=== PATIENT | female | born 1955 ===

== ENCOUNTER 2024-07-27 10:12 | Outpatient (REF) | payer MEDICARE, SELFPAY ==
--- NOTE | ~2024-07-27 | XR_ITS ---
EXAMINATION: XR SHOULDER, LEFT CLINICAL INFORMATION: M25.512 - Pain in left shoulder COMPARISON: None available. TECHNIQUE: 2 views of left shoulder including AP and scapular Y FINDINGS: There is mild arthrosis of the acromioclavicular joint. Glenoid humeral joint: Limited evaluation given the projections obtained. Suspect arthrosis of the glenohumeral joint with small marginal osteophytes noted inferiorly. Surrounding bone and soft tissues unremarkable. XR/XR shoulder LT min 2V IMPRESSION: Mild osteoarthritis of the acromioclavicular joint. Limited evaluation the glenohumeral joint. Suspect at least mild to moderate osteoarthritis. Consider full left shoulder series to further evaluate if felt clinically necessary. Electronically signed by: Sridhar Singleton MD 07/31/2024 01:56 PM [facility]
== END 2024-07-27 10:13 | disposition home or self-care (01) ==
LOC: HO.HOSX 10:12
PROVIDERS: Visit Provider Orthopaedic Surgery
DX: M25.512 Pain in left shoulder (principal); M25.511 Pain in right shoulder
CPT/HCPCS: 73030; 99212

== ENCOUNTER 2024-07-27 12:55 | Outpatient (AMB) | payer MEDICARE, SELFPAY ==
--- NOTE | 2024-07-27 13:16 | MHC.OFFVIS ---
Vital Signs 07/27/24 13:32 Height 5 ft 4 in Weight 149 lb BMI 25.6 Intake Visit Reasons: Bilateral shoulder pains Intake Note: Salena is a 69 year old female who presents with complaints of intermittent bilateral shoulder pains. The patient has not had a cortisone injection given into her left shoulder in the past. She has had multiple cortisone injections given into her right shoulder. The most recent injection was performed by another provider approximately 1 month ago. She has gotten fairly good relief from that injection. The patient continues with her home stretching program. The patient has been told that her right shoulder is ?[id number]?. today as a new patient with complaints of bilateral shoulder pain, right greater than left. Got a cortisone injection 06/23/24 at [facility] in her right shoulder. Allergies house dust Allergy (Severe, Verified 07/27/24 13:33) Sneezing pollen extracts Allergy (Severe, Verified 07/27/24 13:33) Sneezing erythromycin base Adverse Reaction (Severe, Verified 07/27/24 13:33) Diarrhea Medication List - Last Reconciled 07/27/24 by Troy Peterson MD amlodipine 5 mg PO DAILY citalopram 20 mg PO DAILY meloxicam 15 mg PO DAILY PFSH Social History (Updated 07/27/24 @ 13:35 by NITIN Chase) Alcohol intake: current Alcohol intake frequency: holidays/special occasions only Patient Tobacco Use Status: Never used Tobacco Current occupational status: retired Physical Exam Vital Signs: BMI result Body Mass Index 25.6 Const Other: Well-nourished well-developed very friendly female awake alert and oriented x3 in no acute distress Extrem Other: Bilateral upper extremity examination shows good capillary refill, no skin lesions noted, normal sensation light touch Bilateral shoulder examination shows forward flexion to 170 degrees, external rotation to 50 degrees, internal rotation to level L2, 4/5 strength with supraspinatus testing, no instability Results Reviewed Results Reviewed: X-rays of the patient's left shoulder taken today show moderate acromioclavicular joint narrowing, a type 2 acromion, mild to moderate glenohumeral joint degenerative changes, no acute bony abnormalities Assessment & Plan Assessment & Plan (1) Right shoulder pain: Code(s): M25.511 - Pain in right shoulder Category: Medical (2) Left shoulder pain: Code(s): M25.512 - Pain in left shoulder Category: Medical Plan Ms. Martinez presents with bilateral shoulder pains due to impingement syndrome and possible rotator cuff tearing. I had a lengthy discussion with the patient regarding the treatment options. At this point the patient's symptoms are tolerable to her. We will hold off on a left shoulder cortisone injection. She will continue with her [id number] exercises to prevent stiffness. She will contact me prior to her follow-up appointment in 2 months should any questions or concerns arise. Feel free to call me at any time should questions regarding her orthopedic management arise. I spent 22 minutes in reviewing the patient's records and imaging studies, seeing the patient and documenting in the medical record. Orders: Orders XR shoulder LT min 2V Today M25.512 - Pain in left shoulder XR shoulder RT min 2V Today M25.511 - Pain in right shoulder Coding Level of Care Code Est Pt Level 3 (30454) Complex EM visit Add On G2211 Diagnoses Right shoulder pain M25.511 Left shoulder pain M25.512
[2024-07-27 13:32] VITALS: BMI 25.6
== END 2024-07-27 14:01 | disposition home or self-care (01) ==
PROVIDERS: PCP Nurse Practitioner Primary Care; Visit Provider Orthopaedic Surgery
DX: M25.511 Pain in right shoulder (principal); M25.512 Pain in left shoulder
CPT/HCPCS: 99213; G2211

== ENCOUNTER 2024-10-27 10:16 | Outpatient (REF) | payer MEDICARE, SELFPAY ==
--- OUTSIDE RECORDS SUMMARY | 2024-10-28 11:29 | XMS_ITS | Encounter Summary ---
Author Organization [facility] Address [address] [place] [address] Care Team Providers Care Sweatband Drummer Name Role Phone Liv Berger NP Primary Care Provider [phone] Reason for Visit * Reason Onset Date Comments Medical Code 09/22/2024 Encounter Details Date Type Department Care Team (Late st Contact Info) Description 09/22/2024 Telephone Internal Medicine - [facility] [address] [place] [address] Liv Berger NP [address] [place] [address] Medical Code Social History Tobacco Use Types [...] for this bloodwork. Miguelangel advise. Tel #: [phone]. documented in this encounter Plan of Treatment Not on file documented as of this encounter Visit Diagnoses Not on filedocumented in this encounter Care Teams Sweatband Drummer Relationship Specialty Start Date End Date Liv Berger NP [address] [place] [address] PCP - General 09/16/22 documented as of this encounter
--- OUTSIDE RECORDS SUMMARY | 2024-10-28 11:29 | XMS_ITS | Clinical Summary ---
Author Organization [facility] Address [address] [place] [address] Care Team Providers Care Road Marker Name Role Phone Yoan Timmons MD Primary Care Provider [phone] Allergies Active Allergy Reactions Criticality Noted Date [...] this topic Medical Devices Implanted Type Area Composition Worker Device Identifier Shelf Expiration Date Model / Serial / Lot Shell Acetabular G7 Pps F Hemisphere Od54 Mm Limited Hole - [id number] - [id number] Implanted:Qty: 1 on 01/29/2018 by Wilbert River MD at [facility] Left: Hip [employer] 09/14/2027 [id number] / / [id number] Screw Trilogy 35mm 6.5mm Self Tap Tivanium Bone Cortex Hip - [id number] - [id number] Implanted:Qty: 1 on 01/29/2018 by Wilbert River MD at [facility] Left: Hip [employer] 09/30/2026 [id number] / / [id number] Screw Trilogy 35mm 6.5mm Self Tap Tivanium Bone Cortex Hip - [id number] - [id number] Implanted:Qty: 1 on 01/29/2018 by Wilbert River MD at [facility] Left: Hip [employer] 11/29/2027 [id number] / / [id number] Liner Acetabular G7 Arcomxl F Neutral Od36 Mm - [id number] - [id number] Implanted:Qty: 1 on 01/29/2018 by Wilbert River MD at [facility] Left: Hip [employer] 02/03/2022 [id number] / / [id number] Head +3mm 36mm Modular Tapered High Definition Cocr Femoral - [id number] - [id number] Implanted:Qty: 1 on 01/29/2018 by Wilbert River MD at [facility] Left: Hip [employer] 06/08/2027 [id number] / / [id number] Stem Taperloc 148mm 133d 14 High Offset Taper Type 1 - [id number] - [id number] Implanted:Qty: 1 on 01/29/2018 by Wilbert River MD at [facility] and [employer] [id number] / / Advance Directives For more information, please contact: [phone] Latest Code Status on File Code Status [...] way: discussion with patient . Care Teams Road Marker Relationship Specialty Start Date End Date Yoan Timmons MD [address] [address] PCP - General Internal Medicine 04/28/17
--- OUTSIDE RECORDS SUMMARY | 2024-10-28 11:29 | XMS_ITS | Clinical Summary ---
Author Organization [facility] Address [address] [place] [address] Phone Care Team Providers Care Solutions Executive Security Name Role Phone Liv Berger NP Primary Care Provider [phone] Encounters Date Type Department Care Team Description 09/22/2024 Telephone Internal Medicine - [facility] [address] [place] [address] Liv Berger NP Medical Code 09/06/2024 Telephone Internal Medicine - [facility] [address] [place] [address] Liv Berger NP Covid-19 08/30/2024 Telephone Internal Medicine - [facility] [address] [place] [address] Liv Berger NP Cough from Last 3 Months Surgical History Surgery Date Site/Laterality Comments KNEE SURGERY 2017 Left PROCEDURE:KNEE SURGERY;COMMENT:MENISCUS REPAIR EXPLORATORY LAPAROTOMY 1979 PROCEDURE:EXPLORATORY LAPAROTOMY CHOLECYSTECTOMY 2017 PROCEDURE:CHOLECYSTECTOMY OTHER SURGICAL HISTORY 2009 PROCEDURE:PALATE / UVULA BIOPSY / EXCISION;COMMENT:REMOVAL OF GROWTH OTHER SURGICAL HISTORY PROCEDURE:MI PELVIC EXAMINATION W/ANESTHESIA OTHER THAN LOCAL;COMMENT:? COLD KNIFE CONE JOINT REPLACEMENT PROCEDURE:JOINT REPLACEMENT TOTAL HIP ARTHROPLASTY 01/29/2018 Left PROCEDURE:TOTAL HIP ARTHROPLASTY;COMMENT:Procedure: REPLACEMENT TOTAL HIP; Surgeon: Wilbert River MD; [facility]: [facility] Service: Orthopedics; Laterality: Left; CHOLECYSTECTOMY 09/07/2017 PROCEDURE: HISTORICAL CHOLECYSTECTOMY OTHER SURGICAL HISTORY PROCEDURE: MI EXPLORATORY LAPAROTOMY CELIOTOMY W/WO BIOPSY SPX HIP [...] Procedure Name Priority Date/Time Associated Diagnosis Comments [facility] SCREENING DIGITAL Routine 07/08/2023 5:49 PM EST Encounter for screening mammogram for malignant neoplasm of breast [facility] DEXA AXIAL SKELETON Routine 07/05/2022 3:50 PM EDT Encounter for screening for osteoporosis from Last 3 Months or Most Recently Relevant to Health Maintenance Results * [facility] SCREENING DIGITAL (07/08/2023 5:49 PM EST) Anatomical Region Laterality Modality Mammography 07/08/2023 11:0 0 AM EST Narrative 07/08/2023 5:49 PM EST Diagnostic Imaging Department [address] [place] [address] Patient: ??LIZETT SMALLWOOD ?/Age/Sex: 1955 - 68 - F Unit#: ??[id number] ? Location/Status: ??SPDIMAM/REG CLI ? Mnemonic/Ordering Site: ??DIGSC/SPMAM Ordering Physician: ??JOSE VENCES APRN Temitope Screening Digital - 11/08/23 - 1130 Report Status:Signed EXAM: [facility] Screening Digital EXAM DATE AND TIME: 07/08/2023 11:30 AM HISTORY: ??Screening. COMPARISON: ??07/04/22, 06/14/21, 10/30/17 TECHNIQUE: Bilateral digital breast tomosynthesis was performed in the CC and MLO projections. Computer aided detection with MyCabbage 3D 3.1 was employed. TISSUE DENSITY: b. [...] Procedure Note Shannan Drew MD - 10/06/2023 Diagnostic Imaging Department [address] [place] [address] Patient: LIZETT SMALLWOOD./Age/Sex: 1955 - 68 - F Unit#: [id number] Location/Status: SPDIMAM/REG CLI Mnemonic/Ordering Site: [facility] Ordering Physician: JOSE VENCES APRN [facility] Screening Digital - 07/08/23 - 1130 Report Status:Signed EXAM: [facility] Screening Digital EXAM DATE AND TIME: 07/08/2023 11:30 AM HISTORY: Screening. COMPARISON: 07/04/22, 06/14/21, 10/30/17 TECHNIQUE: Bilateral digital breast tomosynthesis was performed in the CCand MLO projections. Computer aided detection with MyCabbage 3D 3.1was employed. TISSUE DENSITY: b. There [...] NP IMG BI PROCEDURES Final Result * [facility] DEXA AXIAL SKELETON (07/05/2022 3:50 PM EDT) Anatomical Region Laterality Modality Mammography 07/04/2022 2:08 PM EDT Narrative 07/05/2022 3:50 PM EDT Diagnostic Imaging Department [address] [place] [id number] Patient: ??LIZETT SMALLWOOD ?/Age/Sex: 1955 - 67 - F Unit#: ??[id number] ? Location/Status: ??SPDIMAM/REG CLI ? Mnemonic/Ordering Site: ??MAMDEXAAX/SPMAM Ordering Physician: ??DENNIS TIMMONS MD Temitope Dexa Axial Skeleton - 07/04/22 - 1501 History: Low estrogen state due to menopause. History of fracture. Prior left total hip arthroplasty. Findings: Bone densitometry is performed utilizing dual energy x-ray absorptiometry (DXA) in the E-[employer] unit. The lumbar spine and proximal femora [...] 19.6 percent ??Hip 4.0 percent. IMPRESSION: Osteopenia. [id number] Dictating Physician: ??SHANNAN DREW MD Electronically Signed by: ??SHANNAN DREW MD Dic Date/Time: ??07/05/22 1542 Sign date/Time: ??07/05/22 1550 Procedure Note Shannan Drew MD - 10/02/2023 Diagnostic Imaging Department [address] [place] [address] Patient: LIZETT SMALLWOOD /Age/Sex: 1955 - 67 - F Unit#: [id number] Location/Status: SPDIMAM/REG CLI Mnemonic/Ordering Site: MAMDEXAAX/SPMAM Ordering Physician: DENNIS TIMMONS MD [facility] Dexa Axial Skeleton - 07/04/22 - 1501 History: Low estrogen state due to menopause. History of fracture. Priorleft total hip arthroplasty. Findings: Bone densitometry is performed utilizing dual energy x-ray absorptiometry(DXA) in the [employer] unit. The lumbar spine and proximal femora [...] 19.6 percent Hip 4.0 percent. IMPRESSION: Osteopenia. [id number] Dictating Physician: SHANNAN DREW MD Electronically Signed by: SHANNAN DREW MD Dic Date/Time: 07/05/221547 Sign date/Time: 07/05/221549 us Dennis Timmons MD IMG BI PROCEDURES Final Re sult from Last 3 Months or Most Recently Relevant to Health Maintenance Insurance MEDICARE [facility] Care Teams Solutions Executive Security Relationship Specialty Start Date End Date Liv Berger NP [address] [place] [address] PCP - General 09/16/22
--- OUTSIDE RECORDS SUMMARY | 2024-10-28 11:29 | XMS_ITS | Encounter Summary ---
Author Organization [facility] Address [address] [place] [address] Care Team Providers Care Model Engine Mechanic Name Role Phone Liv Berger NP Primary Care Provider [phone] Reason for Visit * Reason Onset Date Comments Covid-19 09/06/2024 Encounter Details Date Type Department Care Team (Late st Contact Info) Description 09/06/2024 Telephone Internal Medicine - [facility] [address] [place] [address] Liv Berger NP [address] [place] [address] Covid-19 Social History Tobacco Use Types Packs/Day [...] the town She lives in or the [facility] they may offer kits for [...] on filedocumented in this encounter Care Teams Model Engine Mechanic Relationship Specialty Start Date End Date Liv Berger NP [address] [place] [address] PCP - General 09/16/22 documented as of this encounter
== END 2024-10-27 10:17 | disposition home or self-care (01) ==
LOC: HO.HOSX 10:16
PROVIDERS: Visit Provider Orthopaedic Surgery
DX: M25.511 Pain in right shoulder (principal); M25.811 Other specified joint disorders, right shoulder
CPT/HCPCS: 20610; 99212; J1010; J2003

== ENCOUNTER 2024-10-27 15:06 | Outpatient (AMB) | payer MEDICARE, SELFPAY ==
--- NOTE | 2024-10-27 15:07 | A.OFFVIS_ITS ---
Vital Signs 10/27/24 15:08 Height 5 ft 4 in Weight 149 lb BMI 25.6 Intake Visit Reasons: Right shoulder pain Intake Note: Salena is a 69 year old female who presents with complaints of bilateral shoulder pains, right greater than left. She describes her right shoulder pain as sharp in nature. She denies any weakness. She has tried Tylenol and anti- inflammatory medicines which gave her minimal relief. She has also done physical therapy exercises which aggravated her pain. She wishes to hold off on surgery if at all possible. Allergies house dust Allergy (Severe, Verified 10/27/24 15:08) Sneezing pollen extracts Allergy (Severe, Verified 10/27/24 15:08) Sneezing erythromycin base Adverse Reaction (Severe, Verified 10/27/24 15:08) Diarrhea Medication List - Last Reconciled 10/27/24 by Troy Peterson MD amlodipine 5 mg PO DAILY citalopram 20 mg PO DAILY meloxicam 15 mg PO DAILY PFS Social History (System 09/21/24 @ 12:35 by Taryn Mata) Alcohol intake: current Alcohol intake frequency: holidays/special occasions only Patient Tobacco Use Status: Never used Tobacco Current occupational status: retired Physical Exam Vital Signs: BMI result Body Mass Index 25.6 Const Other: Well-nourished well-developed very friendly female awake alert and oriented x3 in no acute distress Extrem Other: Bilateral upper extremity examination shows good capillary refill, no skin lesions noted, normal sensation light touch Right shoulder examination shows slightly decreased range of motion when compared to her left shoulder, 4+ out of 5 strength with supraspinatus testing, positive impingement signs, no instability Office Procedures AMB Joint Injection/Aspiration Joint Injection/Aspiration Primary Site: right shoulder Prep: site was prepped using aseptic technique Injected: 40 mg of and 1% plain lidocaine Procedure: The patient tolerated the procedure well Coding 65558 - Large joint Procedure code (CPT) selection complete Assessment & Plan Assessment & Plan (1) Impingement of right shoulder: Code(s): M25.811 - Other specified joint disorders, right shoulder Category: Medical (2) Right shoulder pain: Code(s): M25.511 - Pain in right shoulder Category: Medical Plan Ms. Martinez presents with right shoulder pain due to impingement syndrome. The risks and benefits of a right shoulder cortisone injection were discussed at length with the patient. The patient wished to proceed. She tolerated the injection well. She will continue with her home stretching program. She will contact me prior to her follow-up appointment in 3 months should any questions or concerns arise. Feel free to call me at any time should questions regarding her orthopedic management arise. I spent 20 minutes in reviewing the patient's records and imaging studies, seeing the patient and documenting in the medical record. Orders: Orders AMB Joint Injection/Aspiration 10/27/24 M25.811 - Other specified joint disorders, right shoulder Coding Level of Care Code Est Pt Level 3 (85174) Complex EM visit Add On G2211 Diagnoses Impingement of right shoulder M25.811 Right shoulder pain M25.511 CPT Codes Coding - 49357 Large joint: 52550 - Large joint ([id number])
[2024-10-27 15:08] VITALS: BMI 25.6
--- OUTSIDE RECORDS SUMMARY | 2024-10-27 18:25 | XMS_ITS | Clinical Summary ---
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 Name Role Phone Yoan Timmons MD Primary Care Provider [phone] Allergies Active Allergy Reactions Criticality Noted Date Comments Erythromycin Diarrhea 05/29/2017 Iodine 12/31/2017 Latex Rash Low 12/31/2017 Other 03/02/2018 Enviromental allergies Dust Cats Dogs horses Medications Medication Sig Dispensed Refills Start Date End Date Status hydrochlorothiazide (HYDRODIURIL) tablet 25 mg 0 05/29/2017 Active KLOR-CON/EF 25 MEQ disintegrating tablet TAKE 1 TABLET BY MOUTH EVERY DAY 5 05/14/2017 Active atorvastatin (LIPITOR) tablet 10 mg TAKE 1 TABLET BY MOUTH EVERY DAY 1 11/26/2017 Active vitamin C (ASCORBIC ACID) 500 MG tablet Take 500 mg by mouth daily. 0 Active Cyanocobalamin (VITAMIN B 12 PO) Take by mouth. 0 Act yahir Multiple Minerals-Vitamins (RAJEEV MAG ZINC +D3 PO) Take by mouth. 0 Active Lactobacillus (ACIDOPHILUS PO) Take by mouth. 0 Acti ve montelukast (SINGULAIR) 10 MG tablet Take 10 mg by mouth every night at bedtime. 0 Active escitalopram (LEXAPRO) 20 MG tablet Take 20 mg by mouth daily. 0 Active hydrochlorothiazide (HYDRODIURIL) tablet 25 mg Take 25 mg by mouth daily. 0 Active montelukast (SINGULAIR) 10 MG tablet Take 10 mg by mouth every night at bedtime. 0 Active Loratadine (CLARITIN) 10 MG CAPS Take 10 mg by mouth daily. 0 Active omeprazole (PRILOSEC) 20 MG capsule Take 20 mg by mouth daily. 0 Active Bioflavonoid Products (GENOVEVA C PO) Take 1 tablet by mouth daily. 0 Active ALPRAZolam (XANAX) 0.5 MG tablet Take 0.5 mg by mouth every night at bedtime as needed for sleep. 0 Active potassium bicarbonate (K-LYTE) 25 MEQ disintegrating tabletIndications:reji tigo Take 25 mEq by mouth daily. 0 Active aspirin EC 81 MG EC tablet Take 1 tablet (81 mg total) by mouth 2 (two) times a day after meals. 82 tablet 0 01/30/2018 Active meloxicam (MOBIC) 15 MG tablet Take 1 tablet (15 mg total) by mouth daily. 30 tablet 0 01/31/2018 Active oxyCODONE (ROXICODONE) 5 MG immediate release tablet Take 1-2 tablets (5-10 mg total) by mouth every 4 (four) hours as needed for pain. 50 tablet 0 01/30/2018 Active senna-docusate (PERICOLACE) 8.6-50 MG Take 1 tablet by mouth 2 (two) times a day. 60 tablet 0 01/30/2018 Active oxyCODONE (ROXICODONE) 5 MG immediate release tablet Take 1-2 tablets (5-10 mg total) by mouth every 4 (four) hours as needed for pain. 40 tablet 0 01/30/2018 Active amoxicillin (AMOXIL) 500 MG capsule TAKE 4 CAPS ONE HOUR PRIOR TO DENTAL PROCEDURE 20 capsule 1 03/22/2018 Active pravastatin (PRAVACHOL) tablet 20 mg Take 20 mg by mouth daily. 0 07/12/2018 Active amLODIPine (NORVASC) tablet 5 mg 0 10/01/2022 Active amoxicillin-clavulana te (AUGMENTIN) 875-125 MG per tablet Take 1 tablet by mouth 2 (two) times a day. 0 09/03/2022 Active fluconazole (DIFLUCAN) 150 MG tablet TAKE 1 TABLET BY MOUTH EVERY THREE DAYS NEEDED 0 09/04/2022 Active predniSONE (DELTASONE) 5 mg tablet Take 1 tablet (5 mg total) by mouth daily as needed. 0 08/12/2022 Active tiZANidine (ZANAFLEX) 2 MG tablet Take 1 tablet (2 mg total) by mouth 3 (three) times a day as needed. 21 tablet 0 10/01/2022 Active Active Problems Problem Noted Date Diagnosed Date Arthritis of right glenohumeral joint 10/02/2022 Rhomboid muscle strain 10/02/2022 History of total left hip replacement 02/18/2018 Osteoarthritis of left hip 12/31/2017 Left hip pain 12/31/2017 Lower limb length difference 12/31/2017 Subchondral cyst 12/31/2017 Status post arthroscopy of left knee 05/29/2017 Arthralgia of left knee 05/29/2017 Family History Medical History Relation Name Comments Heart disease Father Kidney disease Father Cancer Mother Diabetes Mother Hypertension Mother Thyroid disease Mother Coronary artery disease Sister Hypertension Sister Relation Name Status Comments Father Mother Other unk Sister Social History Tobacco Use Types Packs/Day Years Used Date Smoking Tobacco: Never Smokeless Tobacco: Never Tobacco Cessation:Counseling Given: Not Answered Alcohol Use Standard Drinks/Week Comments Not Currently 0 (1 standard drink = 0.6 oz pur e alcohol) VERY RARELY Sex and Gender Information Value Date Recorded Sex Assigned at Female 11/11/2019 1:38 PM EDT Gender Identity Not on file Sexual Orientation Not on file Job Start Date Occupation Industry Not on file Not on file Not on file Last Filed Vital Signs Vital Sign Reading Time Taken Comments Blood Pressure 140/90 11/18/2018 3:09 PM EDT Pulse 80 11/18/2018 3:09 PM EDT Temperature 36.6 ??C (97.8 ??F) 02/18/2018 1:27 PM ED T Respiratory Rate 16 01/30/2018 9:00 AM EDT Oxygen Saturation 98% 01/30/2018 9:00 AM EDT Inhaled Oxygen Concentration - - Weight 79.4 kg (175 lb) 10/01/2022 3:08 PM EST Height 162.6 cm (5' 4 ) 10/01/2022 3:08 PM EST Body Mass Index 30.04 10/01/2022 3:08 PM EST Plan of Treatment Health Maintenance Due Date Last Done Comments Hepatitis C Screening 1955 COVID-19 Vaccine (#1) 1953 Depression Screening 1965 BMI Counseling 1971 Preventative Health Evaluation 1971 DTap / Tdap / Td (1 - Tdap) 01/23/1972 Colon Cancer Screening (Colonoscopy) 1998 Breast Cancer Screening (Mammogram) 2003 Shingrix-Zoster Vaccine (1 of 2) 2003 Fall Risk Assessment 2018 Osteoporosis Screening (DEXA Scan) 2018 Pneumococcal Vaccine (1 of 1 - PCV) 2018 Influenza Vaccine (#1) 2024 RSV Adult > 60+ Yrs or Pregn ant (1 - 1-dose 75+ series) 01/23/2028 Hepatitis B Vaccines Aged Out No long er eligible based on patient's age to complete this topic RSV Ped < 20 months Aged Out No longe r eligible based on patient's age to complete this topic Medical Devices Implanted Type Area Manager Basketball Device Identifier Shelf Expiration Date Model / Serial / Lot Shell Acetabular G7 Pps F Hemisphere Od54 Mm Limited Hole - [id number] - [id number] Implanted:Qty: 1 on 01/29/2018 by Wilbert River MD at [facility] and [facility] [place] Left: Hip [employer] 09/14/2027 [id number] / / [id number] Screw Trilogy 35mm 6.5mm Self Tap Tivanium Bone Cortex Hip - [id number] - [id number] Implanted:Qty: 1 on 01/29/2018 by Wilbert River MD at [facility] and [facility] [place] Left: Hip [employer] 09/30/2026 [id number] / / [id number] Screw Trilogy 35mm 6.5mm Self Tap Tivanium Bone Cortex Hip - [id number] - [id number] Implanted:Qty: 1 on 01/29/2018 by Wilbert River MD at [facility] and [facility] [place] Left: Hip [employer] 11/29/2027 [id number] / / [id number] Liner Acetabular G7 Arcomxl F Neutral Od36 Mm - [id number] - [id number] Implanted:Qty: 1 on 01/29/2018 by Wilbert River MD at [facility] and [facility] [place] Left: Hip [employer] 02/03/2022 [id number] / / [id number] Head +3mm 36mm Modular Tapered High Definition Cocr Femoral - [id number] - [id number] Implanted:Qty: 1 on 01/29/2018 by Wilbert River MD at [facility] and [facility] [place] Left: Hip [employer] 06/08/2027 [id number] / / [id number] Stem Taperloc 148mm 133d 14 High Offset Taper Type 1 - [id number] - [id number] Implanted:Qty: 1 on 01/29/2018 by Wilbert River MD at [facility] and [employer] [id number] / / Advance Directives For more information, please contact: [phone] Latest Code Status on File Code Status Date Activated Date Inactivated Comments Full Code 01/29/2018 1:23 PM 01/31/2018 12:06 AM This c ode status was ascertained in the following way: discussion with patient . Code Status History Code Status Date Activated Date Inactivated Comments Full Code 01/29/2018 5:14 AM 01/29/2018 1:23 PM This co de status was ascertained in the following way: discussion with patient . Care Teams Tempering Machine Operator Relationship Specialty Start Date End Date Yoan Timmons MD [address] [address] PCP - General Internal Medicine 04/28/17
--- OUTSIDE RECORDS SUMMARY | 2024-10-27 18:25 | XMS_ITS | Clinical Summary ---
Author Organization [facility] Address [address] [place] [address] Phone Care Team Providers [employer] Name Role Phone Liv Berger NP Primary Care Provider [phone] Encounters Date Type Department Care Team Description 09/22/2024 Telephone Internal Medicine - [facility] [address] [place] [address] Liv Berger NP Medical Code 09/06/2024 Telephone Internal Medicine - [facility] [address] [place] [address] Liv Berger NP Covid-19 08/30/2024 Telephone Internal Medicine - [address] [place] [address] Liv Berger NP Cough from Last 3 Months Surgical History Surgery Date Site/Laterality Comments KNEE SURGERY 2017 Left PROCEDURE:KNEE SURGERY;COMMENT:MENISCUS REPAIR EXPLORATORY LAPAROTOMY 1979 PROCEDURE:EXPLORATORY LAPAROTOMY CHOLECYSTECTOMY 2017 PROCEDURE:CHOLECYSTECTOMY OTHER SURGICAL HISTORY 2009 PROCEDURE:PALATE / UVULA BIOPSY / EXCISION;COMMENT:REMOVAL OF GROWTH OTHER SURGICAL HISTORY PROCEDURE:LA PELVIC EXAMINATION W/ANESTHESIA OTHER THAN LOCAL;COMMENT:? COLD KNIFE CONE JOINT REPLACEMENT PROCEDURE:JOINT REPLACEMENT TOTAL HIP ARTHROPLASTY 01/29/2018 Left PROCEDURE:TOTAL HIP ARTHROPLASTY;COMMENT:Procedure: REPLACEMENT TOTAL HIP; Surgeon: Wilbert River MD; Location: [facility] Service: Orthopedics; Laterality: Left; CHOLECYSTECTOMY 09/07/2017 PROCEDURE: HISTORICAL CHOLECYSTECTOMY OTHER SURGICAL HISTORY PROCEDURE: LA EXPLORATORY LAPAROTOMY CELIOTOMY W/WO BIOPSY SPX HIP ARTHROPLASTY Left PROCEDURE: HISTORICAL HIP REPLACEMENT Medical History Medical History Date Comments Hypertension DX:Hypertension Arthritis DX:Arthritis Asthma DX:Asthma Irregular heart rhythm DX:Irregu lar heart rhythm Snoring DX:Snoring Depression DX:Depression Cataract DX:Cataract;COMM ENT:Beginning stages Digestive disorder DX:Digestive disorder;COMMENT:Intermittent Sleep apnea DX:Sleep apnea Snores DX:Snores;COMMEN T:SNORES LOUDLY. NO LIA PER PT Hyperlipidemia DX:Hyperlipidemi a;COMMENT:STOPPED LIPITOR DUE TO MUSCLE ACHES .SAYS SHE WILL RESTART AFTER HIP SURGERY Osteoarthritis DX:Osteoarthriti s Arrhythmia 1979 DX:Arrhythmia;CO MMENT:PACs Dizziness DX:Dizziness;COM MENT:OCC. PT STATES IT OCCURS WHEN SHE DOES NOT TAKE JAMIE KCLORCON GERD (gastroesophageal reflux disease) DX:GERD (gastroesophageal reflux disease);COMMENT:OMEPRAZOLE Deep vein thrombosis (CMS/HCC) D X:Deep vein thrombosis (HCC);COMMENT:SISTER Urinary urgency DX:Urinary urgen cy Peripheral neuropathy DX:Periphe ral neuropathy;COMMENT:OCC IN FEET High blood pressure DX:High bloo d pressure Female infertility DX:Female inf ertility Family History Medical History Relation Name Comments Coronary artery disease Father Heart disease Father Kidney disease Father Other cancer Father Cancer Mother Coronary artery disease Mother Diabetes Mother Hypertension Mother Thyroid disease Mother Coronary artery disease Sister 1 Hypertension Sister 1 Coronary artery disease Sister 2 Relation Name Status Comments Father Mother Other unk Sister 1 Sister 2 Social History Tobacco Use Types Packs/Day Years Used Date Smoking Tobacco: Never Smokeless Tobacco: Never Alcohol Use Standard Drinks/Week Comments Yes 0 (1 standard drink = 0.6 oz pur e alcohol) Comments Unknown Sex and Gender Information Value Date Recorded Sex Assigned at Not on file Legal Sex Female 8:25 PM EST Gender Identity Not on file Sexual Orientation Not on file Obstetrics History Last Filed Vital Signs Vital Sign Reading Time Taken Comments Blood Pressure 144/70 06/10/2024 2:40 PM EDT Pulse 75 06/07/2024 3:04 PM EDT Temperature - - Respiratory Rate - - Oxygen Saturation - - Inhaled Oxygen Concentration - - Weight 69.4 kg (153 lb) 06/10/2024 2:40 PM EDT Height 162.6 cm (5' 4 ) 06/10/2024 2:40 PM EDT Body Mass Index 26.26 06/10/2024 2:40 PM EDT Plan of Treatment Health Maintenance Due Date Last Done Comments DTaP,Tdap,and Td Vaccines (1 - Tdap) 01/23/1972 Zoster Vaccines (1 of 2) 2003 RSV Immunization Patients 60+ Years Old (1 - Risk 60-74 years 1-dose series) 2013 Colorectal Cancer Screening: Colonoscopy 08/02/2022 Depression Screening 08/02/2022 Falls Risk Assessment 08/02/2022 Hepatitis C Screening 08/02/2022 Medicare Annual Wellness Visit 08/02/2022 Social Influencers of Health Screening 08/02/2022 COVID-19 Vaccine ( season) 2024 05/31/2024, 08/27/2021, 02/11/2021, Additional history exists Hypertension/CHF/CAD Annual BMP Blood Test 06/07/2025 06/07/2024, 01/14/2024, 12/31/2017 Breast Cancer Screening 07/08/2025 07/08/20 23, 07/05/2022, 06/17/2021, Additional history exists Cholesterol Screening (Lipid Panel) 06/07/2029 06/07/2024 Osteoporosis Screening (Bone Density Screening) 07/05/2032 07/05/2022 Pneumococcal Vaccine: 50+ Years Completed 12/29/2022 Influenza Vaccine Completed 05/31/2024, 05/30/2024 HIB Vaccines Aged Out No longer eligi ble based on patient's age to complete this topic HPV Vaccines Aged Out No longer eligi ble based on patient's age to complete this topic Hepatitis A Vaccines Aged Out No long er eligible based on patient's age to complete this topic Hepatitis B Vaccines Aged Out No long er eligible based on patient's age to complete this topic IPV Vaccines Aged Out No longer eligi ble based on patient's age to complete this topic MMR Vaccines Aged Out No longer eligi ble based on patient's age to complete this topic Meningococcal ACWY Vaccine Aged Out N o longer eligible based on patient's age to complete this topic Meningococcal B Vacine Aged Out No lo nger eligible based on patient's age to complete this topic RSV Immunization Patients Under 20 months Aged Out No longer eligible based on patient's age to complete this topic Varicella Vaccines Aged Out No longer eligible based on patient's age to complete this topic Procedures Procedure Name Priority Date/Time Associated Diagnosis Comments [facility] SCREENING DIGITAL Routine 07/08/2023 5:49 PM EST Encounter for screening mammogram for malignant neoplasm of breast [facility] DEXA AXIAL SKELETON Routine 07/05/2022 3:50 PM EDT Encounter for screening for osteoporosis from Last 3 Months or Most Recently Relevant to Health Maintenance Results * [facility] SCREENING DIGITAL (07/08/2023 5:49 PM EST) Anatomical Region Laterality Modality Mammography 07/08/2023 11:0 0 AM EST Narrative 07/08/2023 5:49 PM EST [facility] Diagnostic Imaging Department [address] [place] [address] Patient: ??LIZETT SMALLWOOD ?/Age/Sex: 1955 - 68 - F Unit#: ??[id number] ? Location/Status: ??SPDIMAM/REG CLI ? Mnemonic/Ordering Site: ??DIGSC/SPMAM Ordering Physician: ??JOSE VENCES APRN Temitope Screening Digital - 11/08/23 - 1130 Report Status:Signed EXAM: [facility] Screening Digital EXAM DATE AND TIME: 07/08/2023 11:30 AM HISTORY: ??Screening. COMPARISON: ??07/04/22, 06/14/21, 10/30/17 TECHNIQUE: Bilateral digital breast tomosynthesis was performed in the CC and MLO projections. Computer aided detection with Traansmission 3D 3.1 was employed. TISSUE DENSITY: b. There are scattered areas of fibroglandular density. FINDINGS: No suspicious masses, grouped microcalcifications, or areas of architectural distortion are seen. Benign calcifications are again seen bilaterally, including benign rim calcifications. Vascular calcification is present. The skin is unremarkable. IMPRESSION: Stable mammographic appearance of the breasts. ??No evidence of malignancy is seen. A negative mammogram in the presence of a clinically suspicious palpable abnormality does not preclude the possibility of malignancy or alter the indications for biopsy. BI-RADS: ??Category 2: Benign RECOMMENDATION(S): 1: Routine screening mammogram BILATERAL in 1 year. Dictating Physician: ??SHANNAN DREW MD Electronically Signed by: ??SHANNAN DREW MD Dic Date/Time: ??07/08/231747 Sign date/Time: ??07/08/231748 Procedure Note Shannan Drew MD - 10/06/2023 [facility] Diagnostic Imaging Department [address] [place] [address] Patient: LIZETT SMALLWOOD./Age/Sex: 1955 - 68 - F Unit#: [id number] Location/Status: SPDIMAM/REG CLI Mnemonic/Ordering Site: [facility] Ordering Physician: JOSE VENCES APRN [facility] Screening Digital - 07/08/23 - 1130 Report Status:Signed EXAM: [facility] Screening Digital EXAM DATE AND TIME: 07/08/2023 11:30 AM HISTORY: Screening. COMPARISON: 07/04/22, 06/14/21, 10/30/17 TECHNIQUE: Bilateral digital breast tomosynthesis was performed in the CCand MLO projections. Computer aided detection with Traansmission 3D 3.1was employed. TISSUE DENSITY: b. There are scattered areas of fibroglandular density. FINDINGS: No suspicious masses, grouped microcalcifications, or areas ofarchitectural distortion are seen. Benign calcifications are again seen bilaterally,including benign rim calcifications. Vascular calcification is present. The skinis unremarkable. IMPRESSION: Stable mammographic appearance of the breasts. No evidence of malignancyis seen. A negative mammogram in the presence of a clinically suspicious palpable abnormality does not preclude the possibility of malignancy or alter the indications for biopsy. BI-RADS: Category 2: Benign RECOMMENDATION(S): 1: Routine screening mammogram BILATERAL in 1 year. Dictating Physician: SHANNAN DREW MD Electronically Signed by: SHANNAN DREW MD Dic Date/Time: 07/08/231747 Sign date/Time: 07/08/231748 Liv Berger NP IMG BI PROCEDURES Final Result * [facility] DEXA AXIAL SKELETON (07/05/2022 3:50 PM EDT) Anatomical Region Laterality Modality Mammography 07/04/2022 2:08 PM EDT Narrative 07/05/2022 3:50 PM EDT [facility] Diagnostic Imaging Department [address] [place] [address] [id number] Patient: ??LIZETT SMALLWOOD ?/Age/Sex: 1955 - 67 - F Unit#: ??[id number] ? Location/Status: ??SPDIMAM/REG CLI ? Mnemonic/Ordering Site: ??MAMDEXAAX/SPMAM Ordering Physician: ??DENNIS TIMMONS MD Temitope Dexa Axial Skeleton - 07/04/22 - 1501 History: Low estrogen state due to menopause. History of fracture. Prior left total hip arthroplasty. Findings: Bone densitometry is performed utilizing dual energy x-ray absorptiometry (DXA) in the [employer] unit. The lumbar spine and proximal femora are evaluated in the AP projection. The FRAX questionaire was completed. The results indicate low bone mass (osteopenia), with a right femoral neck T- score of -2.2. The Z score is -0.9, indicating the patient's bone mineral density is considered within normal limits relative to age. ??The detailed DEXA report will be mailed to the referring physician's office. DualFemur FRAX: 10-year Probability of Fracture: Major Osteoporotic 19.6 percent ??Hip 4.0 percent. IMPRESSION: Osteopenia. [id number] Dictating Physician: ??SHANNAN DREW MD Electronically Signed by: ??SHANNAN DREW MD Dic Date/Time: ??07/05/22 1546 Sign date/Time: ??07/05/22 1550 Procedure Note Shannan Drew MD - 10/02/2023 [facility] Diagnostic Imaging Department [address] [place] [address] Patient: LIZETT SMALLWOOD /Age/Sex: 1955 - 67 - F Unit#: [id number] Location/Status: SPDIMAM/REG CLI Mnemonic/Ordering Site: MAMDEXAAX/SPMAM Ordering Physician: DENNIS TIMMONS MD [facility] Dexa Axial Skeleton - 07/04/22 - 1501 History: Low estrogen state due to menopause. History of fracture. Priorleft total hip arthroplasty. Findings: Bone densitometry is performed utilizing dual energy x-ray absorptiometry(DXA) in the [employer] unit. The lumbar spine and proximal femora areevaluated in the AP projection. The FRAX questionaire was completed. The results indicate low bone mass (osteopenia), with a right femoral neckT- score of -2.2. The Z score is -0.9, indicating the patient's bonemineral density is considered within normal limits relative to age. The detailedDEXA report will be mailed to the referring physician's office. DualFemur FRAX: 10-year Probability of Fracture: Major Osteoporotic 19.6 percent Hip 4.0 percent. IMPRESSION: Osteopenia. [id number] Dictating Physician: SHANNAN DREW MD Electronically Signed by: SHANNAN DREW MD Dic Date/Time: 07/05/221547 Sign date/Time: 07/05/221549 us Dennis Timmons MD IMG BI PROCEDURES Final Re sult from Last 3 Months or Most Recently Relevant to Health Maintenance Insurance MEDICARE [facility] Care Teams [employer] Cook Head Relationship Specialty Start Date End Date Liv Berger NP [address] [place] [id number] PCP - General 09/16/22
--- OUTSIDE RECORDS SUMMARY | 2024-10-27 18:25 | XMS_ITS ---
Author Name [facility] Organization Unknown History of Medication Use Medication Directions Dispensed Refills Start Date End Date [facility] triamcinolone acetonide 0.1 % topical cream APPLY TOPICALLY TWO TIMES PER DAY FOR 15 DAYS active omeprazole 20 mg capsule,delayed release TAKE 1 CAPSULE BY MOUTH EVERY DAY 06/23/2024 active bromfenac 0.09 % eye drops INSTILL 1 DROP TO THE RIGHT EYE ONCE A DAY FOR 6 WEEKS DIRECTED 08/20/2023 completed lidocaine (PF) 10 mg/mL (1 %) injection solution active meloxicam 15 mg tablet Take 1 tablet every day by oral route as needed. 01/21/2024 active prednisone 20 mg tablet TAKE 3 TABS BY MOUTH FOR 3 DAYS THEN 2X3,1X3,0.5X4. BETTER IN THE AM W/FOOD active montelukast 10 mg tablet TAKE 1 TABLET BY MOUTH EVERY DAY active prednisone 5 mg tablet TAKE 1 TABLET BY MOUTH EVERY DAY active clotrimazole 10 mg keshawn TAKE 1 KESHAWN BY MOUTH 5 TIMES DAILY FOR 10 DAYS. active escitalopram 20 mg tablet TAKE 1 TABLET BY MOUTH EVERY DAY 08/20/2023 completed amlodipine 5 mg tablet TAKE 1 TABLET BY MOUTH EVERY DAY active triamcinolone acetonide 40 mg/mL suspension for injection Take 40 mg by injection route. 02/25/2024 active tizanidine 4 mg tablet TAKE 1 TABLET BY MOUTH THREE TIMES A DAY NEEDED 06/23/2024 active Klor-Con/EF 25 mEq effervescent tablet TAKE 1 TABLET BY MOUTH EVERY DAY 06/23/2024 active Problems Problem Status Onset Date Problem Type Date of Resoluti on Source Osteoarthritis of right glenohumeral joint active 2023-01-04 ProblemAct [facility] T Pain in right hip joint active 2023-05-07 ProblemAct [facility] History of total replacement of left hip joint active 2024-01-21 ProblemAct [facility] Abrasion of skin of right knee active 2023-11-25 ProblemAct [facility] Pain in pelvis active 2023-08-20 ProblemAct [facility]
--- OUTSIDE RECORDS SUMMARY | 2024-10-27 18:25 | XMS_ITS | Data Portability ---
Author Organization [place] [facility] Address [address] [place] [id number] Care Team Providers Care Rn Traveling Name Role Phone DENNIS MCCRARY Primary Care Provider Assessment Encounter Date Assessment Date Assessment LastModified by Organization Details LastModified Time 08/20/2023 08/20/2023 This is a pleasant 68-year-old female with right glenohumeral arthritis who gets good relief with cortisone injection for which she opted for at today's visit. After verbal consent was granted by patient. The procedure was carried out on the right shoulder. She tolerated this well aftercare instructions were discussed in detail. Follow-up visit 3 months or for repeat clinical exam. Patient was seen and evaluated by Lali England PA-C in indirect conjuction with Documenting Provider: Mateusz Crook MD . He/She agrees with history, physical examination, tests/diagnostic imaging, and treatment plan. Additional treatment plan discussed with the patient (only initiated if in boldface font) otherwise not applicable. Treatment may include the following; - Provider focused nonsteroidal anti-inflammator y regimen (discussed were the pros, cons, benefits and risks as well as any black box warnings) in patients over 60 years old they should be very cautious in taking these medications due to potential decreased kidney function and or elevated blood pressure. - Analgesic pain medication for pain suppression (discussed were the pros, cons, benefits and risks as well as any black box warnings) - The use of topical pain relieving medication were discussed - The use of ice to decrease inflammation and pain - The use of assistive ambulatory devices for ambulation and fall prevention - Formal specific guided physical therapy program I reviewed my findings at length with the patient today. ??We discussed the nature and etiology of this problem along with current treatment options. We discussed the expected course and outcomes and what to expect. We also discussed risks and benefits. ?? All of their questions were answered today, and there was exhibited understanding and comprehension of all that was discussed. Time Spent: 10 minutes were spent reviewing previous imaging and charting. ??10 minutes were spent obtaining patient history. ??5 minutes were spent on physical exam. ??5??minutes were spent explaining diagnosis and assessment. Today's documentation was made using voice recognition software. This note may contain grammatical errors secondary to the software. Not available 08/20/2023 14:57:27 11/25/2023 11/25/2023 This is a pleasant 68-year-old female with right glenohumeral arthritis who gets good relief with cortisone injection for which she opted for at today's visit. After verbal consent was granted by patient. The procedure was carried out on the right shoulder. She tolerated this well aftercare instructions were discussed in detail. Follow-up visit 3 months or for repeat clinical exam. Regarding her right knee she has a soft tissue abrasion wound care with dry sterile dressing recommended with triple antibiotic. Should she have lingering symptoms she should contact our office for reevaluation. No additional treatment at today's visit she agrees to this plan. We did review her radiographs with her in detail. Patient was seen and evaluated by Lali England PA-C in indirect conjuction with Documenting Provider: Mateusz Crook MD . He/She agrees with history, physical examination, tests/diagnostic imaging, and treatment plan. Additional treatment plan discussed with the patient (only initiated if in boldface font) otherwise not applicable. Treatment may include the following; - Provider focused nonsteroidal anti-inflammator y regimen (discussed were the pros, cons, benefits and risks as well as any black box warnings) in patients over 60 years old they should be very cautious in taking these medications due to potential decreased kidney function and or elevated blood pressure. - Analgesic pain medication for pain suppression (discussed were the pros, cons, benefits and risks as well as any black box warnings) - The use of topical pain relieving medication were discussed - The use of ice to decrease inflammation and pain - The use of assistive ambulatory devices for ambulation and fall prevention - Formal specific guided physical therapy program I reviewed my findings at length with the patient today. ??We discussed the nature and etiology of this problem along with current treatment options. We discussed the expected course and outcomes and what to expect. We also discussed risks and benefits. ?? All of their questions were answered today, and there was exhibited understanding and comprehension of all that was discussed. Time Spent: 10 minutes were spent reviewing previous imaging and charting. ??10 minutes were spent obtaining patient history. ??5 minutes were spent on physical exam. ??5??minutes were spent explaining diagnosis and assessment. Today's documentation was made using voice recognition software. This note may contain grammatical errors secondary to the software. Not available 11/25/2023 15:25:17 01/21/2024 01/21/2024 68-year-old female with left thigh pain. Notably she is status post left-sided total hip arthroplasty. There is no clinical or radiographic evidence of failure of her prosthetic. She also has some left knee pain. History examination and x-rays are consistent with mild osteoarthritis. She is also presenting with clinical signs of percent muscle strain and sprain. After discussion regarding treatment options she will be provided a prescription for meloxicam. Recheck in 2 months. This patient was seen and evaluated by Lali Lawrence MS, PA-C in indirect conjunction with documenting/supe rvising provider Gerson Loving MD. He agrees with history, physical examination, tests/diagnostic imaging, and treatment plan. This document was generated using voice recognition software. As a result, there may be unintended spelling, grammatical and/or textual errors. Not available 01/21/2024 16:38:26 02/25/2024 02/25/2024 The above findings were discussed in detail today with the patient. They have evidence of shoulder glenohumeral joint arthritis. Pathology and expected prognosis were discussed with the patient today. Treatment options include conservative treatment, anti-inflammator ies, activity modification, a cortisone injection, or consideration for shoulder surgery. They would not like surgery at this point would like a steroid injection. Risk and benefits of steroid injection were discussed with the patient today, they understand these risks and would like to proceed. They tolerated the procedure well. I let them know it can take 2 days to 2 weeks start working after 6 weeks to take its full effect. They can take anti-inflammator ies, ice, and rest or do activity medication in the meantime to help with the pain. I will see them back for follow-up in 3 months for repeat evaluation. All of their questions were answered, they are in agreement with the plan. ángela Not available 02/25/2024 16:26:43 06/23/2024 06/23/2024 The above findings were discussed in detail today with the patient. She has evidence of right shoulder glenohumeral joint arthritis, got good relief from a steroid injection however has recurrence of symptoms today. We discussed treatment options which include activity modification, anti-inflammator ies, another steroid injection, or consideration for surgery. She is not ready for surgery at this point. She would like to proceed with another injection today. Details of injection and as well as risks were discussed, including but not limited to infection, bleeding, nerve injury, no improvement, worsening of symptoms, flare reaction, skin depigmentation, and lipodystrophy. I let them know it can take 2 days to 2 weeks to start working and up to 6 weeks to take its full effect. They understand this and gave verbal consent. They tolerated the procedure well. I will send in a refill for her meloxicam which she will take as needed if the pain does return. I will have her follow-up with our shoulder specialist in 3 months for reevaluation. All of her questions were answered, she is in agreement with plan. ángela Not available 06/23/2024 15:18:35 Plan of Treatment Reminders Order Date Submit Date Provider Last Modified By Organization Details Last Modified Time Details Appointments None recorded. Lab None recorded. Referral None recorded. Procedures None recorded. Surgeries None recorded. Imaging XR, hip, unilateral, 2 or 3 view 2023 024 [email or web address] 2 [facility], [address], [place], [address], 4 16:44:11 XR, knee, 4 or more view 2023 024 [email or web address] 2 [facility], [address], [address], [place], [address], 4 16:44:11 XR, shoulder, 2 or more view 2023 [facility], [address], [address] [facility], [place], [address], 4 07:07:45 Medication Orders lidocaine (PF) 10 mg/mL (1 %) injection solution [address]/[facility]armacy #[id number], [address] [place], [address], 4 15:48:15 triamcinolo ne acetonide 40 mg/mL suspension for injection [address]/Pharmacy #0843, [address] [place], [address], 4 15:48:15 meloxicam 15 mg tablet 2023 024 [facility]/Pharmacy #0843, [address] [place], [address], 4 14:51:41 lidocaine (PF) 10 mg/mL (1 %) injection solution [address]/Pharmacy #0843, [address] [place], [address], 4 14:37:17 triamcinolo ne acetonide 40 mg/mL suspension for injection [address]/Pharmacy #0843, [address] [place], [address], 4 14:38:06 meloxicam 15 mg tablet 2023 024 [facility]/Pharmacy #0843, [address] [place], [address], 4 16:37:58 Kenalog 40 mg/mL suspension for injection [address]/Pharmacy #0843, [address] [place], [address], 14:38:06 lidocaine (PF) 100 mg/5 mL (2 %) injection syringe [address]23 [address] [address] [place] [address], [address], 14:37:19 Kenalog 40 mg/mL suspension for injection 2022 [address] [place], [address], 14:38:06 lidocaine (PF) 10 mg/mL (1 %) injection solution 2022 [address] [address] [place] [address], [address], 14:37:17 Patient TargetsNo targets recorded. Patient Instructions Encounter Date Encounter Id Patient Instructions Last Modified By Organization Details Last Modified Time 08/20/2023 [id number] You have been provided with a cortisone injection in order to reduce the pain and inflammation that you are experiencing. The injection consists of two medications. Cortisone (an anti-inflammatory that will take 48-72 hours to take effect) and Lidocaine (a numbing agent that will last 2-3 hours). Please note that not everyone will have a lasting response following the injection. PATIENT INSTRUCTIONS Once the Lidocaine wears off, you may have an increase in your pain. I recommend icing the affected area for 20 minutes 3-4 times per day. It is recommended that you refrain from any high level activities using the joint or limb that was injected for approximately 24-48 hours. Normal day-to-day activities are generally not a problem. POSSIBLE SIDE EFFECTS Individuals with dark complexions may experience some skin discoloration locally at the site of the injection. There is the possibility of an increase in discomfort within 48 hours following the injection. This is called a ? flare? . To help minimize the chances of this, please see the post-injection instructions above. There is a less than 1% chance of an infection. If you notice any signs of infection (redness, warmth, drainage, fever greater than 100 degrees) please call our office or contact us through the portal [facility]. Not available 08/20/2023 14:56:06 11/25/2023 [id number] You have been provided with a cortisone injection in order to reduce the pain and inflammation that you are experiencing. The injection consists of two medications. Cortisone (an anti-inflammatory that will take 48-72 hours to take effect) and Lidocaine (a numbing agent that will last 2-3 hours). Please note that not everyone will have a lasting response following the injection. PATIENT INSTRUCTIONS Once the Lidocaine wears off, you may have an increase in your pain. I recommend icing the affected area for 20 minutes 3-4 times per day. It is recommended that you refrain from any high level activities using the joint or limb that was injected for approximately 24-48 hours. Normal day-to-day activities are generally not a problem. POSSIBLE SIDE EFFECTS Individuals with dark complexions may experience some skin discoloration locally at the site of the injection. There is the possibility of an increase in discomfort within 48 hours following the injection. This is called a ? flare? . To help minimize the chances of this, please see the post-injection instructions above. There is a less than 1% chance of an infection. If you notice any signs of infection (redness, warmth, drainage, fever greater than 100 degrees) please call our office or contact us through the portal [facility]. Not available 11/25/2023 14:45:40 X-rays of the [facility] shoulder reveal severe tbrk-az-strr articulation glenohumeral arthritis, AC joint arthrosis without acute bony abnormality. Not available 11/25/2023 15:26:45 01/21/2024 [id number] {{2 3 4 5 6 7* 8 9}} view X-ray study obtained during today's office encounter show evidence of {{mild* moderate sev ere}} {{right left* bilate ral}} {{hip knee*}} osteoarthritis. There is joint space narrowing, subchondral sclerosis and marginal osteophytosis. Kellgren-Maximiliano grade {{0 1* 2 3 4}}. No evidence of acute fracture or osteolytic findings. {{3 4* 5 6 7}} view x-ray study of {{right left* bilate ral}} {{hip* knee}} obtained during today's office encounter does not show any signs of implant related issues including loosening, malposition, instability, periprosthetic fracture, periosteal reaction or infection. There is increased cortical thickening of the proximal medial femoral metaphysis suggestive of stress shielding. The remaining cortices are of normal thickness. Again, there is no evidence for fracture or loosening. Not available 01/21/2024 16:37:56 02/25/2024 [id number] You have been provided with a cortisone injection in order to reduce the pain and inflammation that you are experiencing. The injection consists of two medications. Cortisone (an anti-inflammatory that will take 48-72 hours to take effect) and Lidocaine (a numbing agent that will last 2-3 hours). Please note that not everyone will have a lasting response following the injection. PATIENT INSTRUCTIONS Once the Lidocaine wears off, you may have an increase in your pain. I recommend icing the affected area for 20 minutes 3-4 times per day. It is recommended that you refrain from any high level activities using the joint or limb that was injected for approximately 24-48 hours. Normal day-to-day activities are generally not a problem. POSSIBLE SIDE EFFECTS Individuals with dark complexions may experience some skin discoloration locally at the site of the injection. There is the possibility of an increase in discomfort within 48 hours following the injection. This is called a ? flare? . To help minimize the chances of this, please see the post-injection instructions above. There is a less than 1% chance of an infection. If you notice any signs of infection (redness, warmth, drainage, fever greater than 100 degrees) please call our office or contact us through the portal [facility]. Not available 02/25/2024 16:26:46 3 views of the r ight shoulder taken on 11/25/2023 were available for review, this demonstrates glenohumeral joint arthritis with joint space narrowing, osteophyte formation, and subchondral sclerosis. There is no humeral head proximal migration. There is mild demineralization of the bones. Not available 02/25/2024 16:26:14 06/23/2024 [id number] You have been provided with a cortisone injection in order to reduce the pain and inflammation that you are experiencing. The injection consists of two medications. Cortisone (an anti-inflammatory that will take 48-72 hours to take effect) and Lidocaine (a numbing agent that will last 2-3 hours). Please note that not everyone will have a lasting response following the injection. PATIENT INSTRUCTIONS Once the Lidocaine wears off, you may have an increase in your pain. I recommend icing the affected area for 20 minutes 3-4 times per day. It is recommended that you refrain from any high level activities using the joint or limb that was injected for approximately 24-48 hours. Normal day-to-day activities are generally not a problem. POSSIBLE SIDE EFFECTS Individuals with dark complexions may experience some skin discoloration locally at the site of the injection. There is the possibility of an increase in discomfort within 48 hours following the injection. This is called a ? flare? . To help minimize the chances of this, please see the post-injection instructions above. There is a less than 1% chance of an infection. If you notice any signs of infection (redness, warmth, drainage, fever greater than 100 degrees) please call our office or contact us through the portal [facility]. Not available 06/23/2024 15:17:39 Reason for Referral None Reported. Problems Name Problem SNOMED Code Status Onset Date Resolution Date Notes Provider Name and Address Organization Details Recorded Time Pain in right hip joint 6860957238411 02 Active 2022 LALI ENGLAND PA-C [address], [place], [address], [place] [facility] 3 13:34:03 Pain in pelvis 55667643 Active 2022 LALI ENGLAND PA-C [address], [place], [address], [place] [facility] 3 14:54:33 Abrasion of skin of right knee 0708482895980 9104 Active 2023 LALI ENGLAND PA-C [address], [place], [address], [place] [facility] 4 15:27:49 History of total replacement of left hip joint 0737869302368 105 Active 2023 LALI LAWRENCE PA-C [address], [place], [address], [place] [facility] 4 16:35:47 Osteoarthri tis of right glenohumera l joint 0906178733349 101 Active 2022 LALI ENGLAND PA-C [address] [facility] [address], [place], [address], [place] [facility] 3 20:42:43 Problem Notes None recorded. Procedures Surgical History Date Name Laterality Status Provider Name and Address Organization Details Recorded Time 06/23/20 24 LES Shoulder Interarticular Inj completed Johanne Umana MD [address] [facility],[address] [facility], [place], [address], [place] [facility] 06/23/2024 15:17:31 02/25/20 24 LES Shoulder Interarticular Inj completed Johanne Umana MD [address] [facility],[address] [facility], [place], [address], [place] [facility] 02/25/2024 16:25:26 11/25/19 24 Shoulder Joint/Bursa Asp & Inj completed LALI ENGLAND PA-C [address] [facility],[address] [place] [address], [phone], [place] [facility] 11/25/2023 14:45:58 08/20/20 23 Shoulder Joint/Bursa Asp & Inj completed LALI ENGLAND PA-C [address] [facility],[address] [facility], [place], [address], [place] [facility] 08/20/2023 14:54:31 05/07/20 23 Shoulder Joint/Bursa Asp & Inj completed LALI ENGLAND PA-C [address] [facility] [address] [place] [address], [address], [place] [facility] 05/07/2023 13:29:19 01/03/20 23 Shoulder Joint/Bursa Asp & Inj completed LALI ENGLAND PA-C [address] [facility] [address], [place], [address], [place] [facility] 01/04/2023 20:42:37 Imaging Results None recorded. Procedure Notes None recorded. Medical Equipment None Reported. Allergies No known drug allergies Medications Name Sig Start Date Stop Date Status Note LastModified by Organization Details LastModified Time clotrimazol e 10 mg siddhartha TAKE 1 SIDDHARTHA BY MOUTH 5 TIMES DAILY FOR 10 DAYS. PRN active Not Available Not Available No t Available doxycycline hyclate 100 mg capsule TAKE 1 CAPSULE BY MOUTH TWICE A DAY FOR 10 DAYS WAIT A FEW DAYS AND WORSENING BEGIN THE ANTIBIOTI C 06/23 completed Not Available Not Available Not Available tizanidine 2 mg tablet prn 06/23 completed Not Available Not Available Not Available tizanidine 4 mg tablet TAKE 1 TABLET BY MOUTH THREE TIMES A DAY NEEDED 06/23 completed Not Available Not Available Not Available fluconazole 150 mg tablet TAKE 1 TABLET BY MOUTH EVERY 72 HOURS NEEDED (YEAST INFECTION ). 06/23 completed Not Available Not Available Not Available citalopram 10 mg tablet TAKE 1 TABLET BY MOUTH EVERY DAY 08/20 completed Not Available Not Available Not Available meloxicam 15 mg tablet Take 1 tablet(s) every day by oral route as needed. 2023 active Not Available Not Available Not Avai lable prednisone 20 mg tablet TAKE 3 TABS BY MOUTH FOR 3 DAYS THEN 2X3,1X3,0 .5X4. BETTER IN THE AM W/FOOD active Not Available Not Available No t Available prednisone 5 mg tablet TAKE 1 TABLET BY MOUTH EVERY DAY active Not Available Not Available No t Available metronidazo le 250 mg tablet TAKE 1 TABLET BY MOUTH THREE TIMES A DAY FOR 7 DAYS 08/20 completed Not Available Not Available Not Available amlodipine 5 mg tablet TAKE 1 TABLET BY MOUTH EVERY DAY active Not Available Not Available No t Available triamcinolo ne acetonide 0.1 % topical cream APPLY TOPICALLY TWO TIMES PER DAY FOR 15 DAYS active Not Available Not Available No t Available alprazolam 0.5 mg tablet TAKE 1 TABLET BY MOUTH AT BEDTIME NEEDED PRN active Not Available Not Available No t Available citalopram 20 mg tablet TAKE 1 TABLET BY MOUTH EVERY DAY IN THE MORNING active Not Available Not Available No t Available triamcinolo ne acetonide 40 mg/mL suspension for injection Take 40 mg by injection route. 2023 active Not Available Not Available Not Avai lable omeprazole 20 mg capsule,del ayed release TAKE 1 CAPSULE BY MOUTH EVERY DAY 06/23 completed Not Available Not Available Not Available montelukast 10 mg tablet TAKE 1 TABLET BY MOUTH EVERY DAY active Not Available Not Available No t Available Klor-Con/EF 25 mEq effervescen t tablet prn 06/23 completed Not Available Not Available Not Available albuterol sulfate HFA 90 mcg/actuati on aerosol inhaler INHALE 2 PUFFS EACH 3 TIMES PER DAY (COUGH) PRN active Not Available Not Available No t Available amoxicillin 875 mg-potassiu m clavulanate 125 mg tablet TAKE 1 TABLET BY MOUTH TWICE A DAY FOR 10 DAYS 08/20 completed Not Available Not Available Not Available escitalopra m 20 mg tablet TAKE 1 TABLET BY MOUTH EVERY DAY 08/20 completed Not Available Not Available Not Available bromfenac 0.09 % eye drops INSTILL 1 DROP TO THE RIGHT EYE ONCE A DAY FOR 6 WEEKS DIRECTED 08/20 completed Not Available Not Available Not Available lidocaine (PF) 10 mg/mL (1 %) injection solution Take 2 mL by injection route. 2023 active Not Available Not Available Not Avai lable lidocaine (PF) 100 mg/5 mL (2 %) injection syringe Take 2 mL by injection route. 06/23 completed Not Available Not Available Not Available Flowflex COVID-19 Antigen Home Test kit USE ACCORDING TO MANUFACTU RER'S DIRECTION S 06/23 completed Not Available Not Available Not Available Vitals Date Recorded Body height Provider Name an d Address Organization Details Last Updated DateTime 08/20/[address] [facility] 08/20/2023 14:33:11 Date Recorded Body height Provider Name an d Address Organization Details Last Updated DateTime 02/25/[address]24 [address] [facility] 02/25/2024 15:58:29 Date Recorded Body height Provider Name an d Address Organization Details Last Updated DateTime 06/23/2024 [address] [place] [facility] 06/23/2024 14:38:09 Social History None recorded. Functional Status None recorded. Mental Status None recorded. Family History Relationship Description Onset Age of this Age Resolved Age Notes LastModified by Organization Details LastModified Time Mother Hypertensive disorder [email or web address] Not available 2022 13:51:22 Sister Hypertensive disorder [email or web address] Not available 2022 13:51:22 Medical History Condition Response Osteopenia Y Asthma Y Hypertension Y Gynecological HistoryNo gynecological history recorded. Obstetrics History GPAL:G 0 P 0 0 0 0 Past Encounters Encounter ID Performer Location Encounter Start Date Encounter Closed Date Diagnosis/Indication Diagnosis SNOMED-CT Code Diagnosis ICD10 Code Diagnosis Note [id number] MD THOMAS Spring 299 [facility] [address] [place] [address] 11/21/2022 13:43:19 11/21/2022 14:17:58 [id number] MD THOMAS Roblsearmani [address] [address] 01/02/2023 15:04:40 01/02/2023 16:04:10 Osteoarthritis of right glenohumeral joint [id number] M19.011 [id number] MD THOMAS Robles [address] [address] 05/07/2023 12:50:44 05/07/2023 13:26:51 Pain in pelvis 91574757 R10.2 Osteoarthr itis of right glenohumeral joint [id number] 321453 M19.011 Pain in ri ght hip joint 8587442448 52589 M25.551 [id number] MD THOMAS Elias 299 [facility] [address] [place] [address] 08/20/2023 14:24:46 08/20/2023 14:51:43 Osteoarthritis of right glenohumeral joint [id number] 740501 M19.011 [id number] MD THOMAS Elias [address] [address] 11/25/2023 14:43:16 11/25/2023 15:22:05 Pain of right shoulder joint 9293008450 5794908 M25.511 Additional diagnosis detail: Pain in joint of right shoulder Osteoarthr itis of right glenohumeral joint 2644303404 232132 M19.011 Abrasion o f skin of right knee 1139539039 0914824 S80.211A Additional diagnosis detail: Abrasion of right knee, initial encounter [id number] Gerson Loving [facility] [address] [address] 01/21/2024 15:47:12 01/21/2024 16:44:10 Osteoarthritis of left knee joint 6433287867 01859 M17.12 Additional diagnosis detail: Primary osteoarthr itis of left knee History of total replacement of left hip joint 8689224171 939176 Z96.642 Additional diagnosis detail: [place] [id number] [facility] [address] [address] 02/25/2024 15:47:43 02/25/2024 16:22:40 Osteoarthritis of right glenohumeral joint [id number] 451068 M19.011 [id number] MD PRAVIN Simmons[address] [address] 06/23/2024 14:27:55 06/23/2024 14:51:17 Osteoarthritis of right glenohumeral joint 8488959445 570291 M19.011 Health Concerns Section Related Observation LastModified by Organization Detai ls LastModified Time None Recorded Concern Status LastModified by Organization Details LastModified Time None Recorded Advance Directives Directive None Recorded Payers Encounter Date Sequence Insurance Name Policy Number Policy Ardon Covered Member ID Ardon Member ID Guarantor Name 08/20/2023 1 [place] [facility] [facility] Salena Martinez [id number] 4 Salena Martinez 08/20/2023 2 [place] [id number] Salena Martinez [id number] Salena Martinez 11/25/2023 1 [place] [employer] Salena Martinez [id number] 4 Salena Martinez 11/25/2023 2 [place] [id number] Salena Martinez [id number] Salena Martinez 01/21/2024 1 [place] [employer] Salena Martinez [id number] 4 Salena Martinez 01/21/2024 2 [place] [id number] Salena Martinez [id number] Salena Martinez 02/25/2024 1 [place] [facility] G[facility] Salena Martinez [id number] 4 Salena Martinez 02/25/2024 2 [place] [id number] Salena Martinez [id number] Salena Martinez 06/23/2024 1 [place] [facility] G[facility] Salena Martinez [id number] 4 Salena Martinez 06/23/2024 2 [place] [id number] Salena Martinez [id number] Salena Martinez Notes Date Note Type Note Provider Name and Address Organization Details Recorded Time 08/20/2023 text/html This is a 68-year-old female that was last seen on 05/07/2023 had cortisone injection of the right shoulder due to glenohumeral arthritis. She states this gave her 100% relief . She states she has returning symptoms of generalized right shoulder pain. LALI ENGLAND PA-C [address] [place] [address], [address], [place] - [facility] 08/20/2023 14:57:39 11/25/2023 text/html This is a 68-year-old female that was last seen on 08/20/2023 had cortisone injection of the right shoulder due to glenohumeral arthritis. She states this gave her 100% relief . She states she has returning symptoms of generalized right shoulder pain. She states she is gardening today and had a low velocity fall on her right knee for which she has an abrasion for which she would like me to look at. She is walking without difficulty. LALI ENGLAND PA-C 299 [facility],[place] [address], [place], [address], [facility] - [facility] 11/25/2023 15:28:29 01/21/2024 text/html 68-year-old fema todd presents with left thigh pain. She reports the onset of her symptoms a couple of weeks ago. There is no specific injury accident or trauma but she does believe that it is the result of a series of breaks in precautions. She goes on to describe for me that she has been able to cross her legs but has been making an effort to do it more forcefully. She experiences some discomfort along the anterior aspect of the thigh. She describes for me that is thinks sensation that it feels muscular in nature. Prior to this she was having some mild discomfort at the anterior aspect of the knee. The hip itself has remained high functioning and pain-free. LALI LAWRENCE PA-C 299 [facility],[place] [address], [place], [address], [facility] - [facility] 01/21/2024 16:38:54 02/25/2024 text/html This is a 69-year-old skuzo-lqok-lbqgjop t female who presents with right shoulder pain. She has been seeing Lali England for right glenohumeral joint arthritis and receiving steroid injections. Last injection was on 11/25/2023. She says these injections lasted for about 3 months and she gets good relief from them. She is able to do activities of daily living without difficulty. She has some mild pain of the left shoulder however this does not bother her enough that she would want to be addressed today. Johanne Umana MD 299 [facility],[address], [place], [address], [facility] - [facility] 02/25/2024 16:27:12 06/23/2024 text/html She presents for follow-up of her right shoulder glenohumeral joint arthritis, status post a steroid injection on 02/25/2024. She says this is lasted for about 4 months. She notes pain with certain activities. She has been doing activity modification. She takes meloxicam from time to time if she has increasing pain. Johanne Umana MD 299 [facility],[place] [address], [place], [address], [place] - [facility] 06/23/2024 15:18:57 OBGyn Episode No OBEpisode recorded.
--- OUTSIDE RECORDS SUMMARY | 2024-10-27 18:25 | XMS_ITS | Encounter Summary ---
Author Organization [facility] Address [address] [place] [address] Care Team Providers Care Water Technician Name Role Phone Liv Berger NP Primary Care Provider [phone] Reason for Visit * Reason Onset Date Comments Covid-19 09/06/2024 Encounter Details Date Type Department Care Team (Late st Contact Info) Description 09/06/2024 Telephone Internal Medicine - [facility] [address] [place] [address] Liv Berger NP [address] [place] [address] Covid-19 Social History Tobacco Use Types Packs/Day Years Used Date Smoking Tobacco: Never Smokeless Tobacco: Never Alcohol Use Standard Drinks/Week Comments Yes 0 (1 standard drink = 0.6 oz pur e alcohol) Comments Unknown Sex and Gender Information Value Date Recorded Sex Assigned at Not on file Legal Sex Female 8:25 PM EST Gender Identity Not on file Sexual Orientation Not on file documented as of this encounter Progress Notes * Anai Florence MA - 09/06/2024 4:48 PM EST Pt was told to request Covid test from pharmacy and also was told she can check with the town She lives in or the [facility] they may offer kits for free. Pt is concerned about cost and wants some on hand as she lives alone. * Liv Berger NP - 09/06/2024 4:22 PM EST I have never ordered COVID test to the pharmacy. Patient can request from her pharmacy but I cannotprescribe otherwise. * Judy Norman RN - 09/06/2024 1:57 PM EST Spoke with the patient explained that she could test positive for 90 days and does not need to keeptesting . CDC recommends quarantining for 5 days. She is requesting more Covid tests be ordered forher in the pharmacy. Please review and advise thank you * Ebony Santiago - 09/06/2024 1:41 PM EST Patient call requires triage: Symptoms patient is presenting: pt tested positive for Covid last week. She is down to one more test and doesn't know how many times she needs to test negative before being ok. She would like more test sent to her pharmacy How long has patient had these symptoms?: since last week PCP: Liv Berger NP Payor: MEDICARE / Plan: MEDICARE PART A & B / Product Type: Medicare / documented in this encounter Plan of Treatment Not on file documented as of this encounter Visit Diagnoses Not on filedocumented in this encounter Care Teams Water Technician Relationship Specialty Start Date End Date Liv Berger NP [address] [place] [address] PCP - General 09/16/22 documented as of this encounter
--- OUTSIDE RECORDS SUMMARY | 2024-10-27 18:25 | XMS_ITS | Encounter Summary ---
Author Organization [facility] Address [address] [place] [address] Care Team Providers Care Wilderness Guide Name Role Phone Liv Berger NP Primary Care Provider [phone] Reason for Visit * Reason Onset Date Comments Medical Code 09/22/2024 Encounter Details Date Type Department Care Team (Late st Contact Info) Description 09/22/2024 Telephone Internal Medicine - [facility] [address] [place] [address] Liv Berger NP [address] [place] [address] Medical Code Social History Tobacco Use Types Packs/Day Years [...] as of this encounter Progress Notes * Jayro Sullivan - 09/22/2024 12:21 PM EST Pt states she got a [employer] [facility] bill of $160, pt states she has already contacted Billing department and this department push this problem back to our office. Pt states Ab should change the code for the PE appt on 06/07/24 and medicare won't pay for this bloodwork. Miguelangel advise. Tel #: [phone]. documented in this encounter Plan of Treatment Not on file documented as of this encounter Visit Diagnoses Not on filedocumented in this encounter Care Teams Wilderness Guide Relationship Specialty Start Date End Date Liv Berger NP [address] [place] [address] PCP - General 09/16/22 documented as of this encounter
== END 2024-10-27 15:34 | disposition home or self-care (01) ==
PROVIDERS: PCP Nurse Practitioner Primary Care; Visit Provider Orthopaedic Surgery
DX: M25.811 Other specified joint disorders, right shoulder (principal); M25.511 Pain in right shoulder
CPT/HCPCS: 20610; 99213

== ENCOUNTER 2025-02-23 15:03 | Outpatient (AMB) | payer MEDICARE, SELFPAY ==
[2025-02-23 15:04] VITALS: BMI 25.6
--- NOTE | 2025-02-23 15:04 | A.OFFVIS_ITS ---
Vital Signs 02/23/25 15:04 Height 5 ft 4 in Weight 149 lb BMI 25.6 Intake Visit Reasons: OV-Right shoulder inj-Last 10/27/24 Intake Note: Salena is a 70 year old female who presents for follow up of her right shoulder pain. The patient describes her pain as sharp in nature. She has had cortisone injections in the past which gave her fairly good relief. She wishes to hold off on surgery if at all possible. She has done physical therapy exercises which aggravated her pain. She has also tried Tylenol and anti-inflammatory medicines which gave her mild relief. Allergies house dust Allergy (Severe, Verified 02/23/25 15:09) Sneezing pollen extracts Allergy (Severe, Verified 02/23/25 15:09) Sneezing erythromycin base Adverse Reaction (Severe, Verified 02/23/25 15:09) Diarrhea Medication List - Last Reconciled 02/24/25 by Troy Peterson MD amlodipine 5 mg PO DAILY citalopram 30 mg PO DAILY meloxicam 15 mg PO DAILY PFS Social History (System 09/21/24 @ 12:35 by Taryn Mata) Alcohol intake: current Alcohol intake frequency: holidays/special occasions only Patient Tobacco Use Status: Never used Tobacco Current occupational status: retired Physical Exam Vital Signs: BMI result Body Mass Index 25.6 Const Other: Well-nourished well-developed very friendly female awake alert and oriented x3 in no acute distress Extrem Other: Right shoulder examination shows decreased range of motion when compared to her left shoulder, 4+ out of 5 strength with supraspinatus testing, positive impingement signs, no instability Office Procedures AMB Joint Injection/Aspiration Joint Injection/Aspiration Primary Site: right shoulder Prep: site was prepped using aseptic technique Injected: 40 mg of, DepoMedrol and 1% plain lidocaine Procedure: The patient tolerated the procedure well Coding 45216 - Large joint Procedure code (CPT) selection complete Results Reviewed Results Reviewed: X-rays of the patient's right shoulder show severe acromioclavicular joint narrowing, a type 2 acromion, moderate to severe glenohumeral joint degenerative changes Assessment & Plan Assessment & Plan (1) Right shoulder pain: Code(s): M25.511 - Pain in right shoulder Category: Medical (2) Impingement of right shoulder: Code(s): M25.811 - Other specified joint disorders, right shoulder Category: Medical Plan Ms. Martinez presents with right shoulder pain due to impingement syndrome and glenohumeral joint arthritis. The risks and benefits of a right shoulder cortisone injection were discussed at length with the patient. The patient wi shed to proceed. She tolerated the injection well. She will continue with her home stretching program. She will contact me prior to her follow-up appointment in 3 months should any questions or concerns arise. Feel free to call me at any time should questions regarding her orthopedic management arise. I spent 22 minutes in reviewing the patient's records and imaging studies, seeing the patient and documenting in the medical record. Orders: Orders XR shoulder RT min 2V 02/23/25 M25.511 - Pain in right shoulder AMB Joint Injection/Aspiration 02/23/25 M25.811 - Other specified joint disorders, right shoulder Coding Level of Care Code Est Pt Level 3 (51078) Complex EM visit Add On G2211 Diagnoses Right shoulder pain M25.511 Impingement of right shoulder M25.811 CPT Codes Coding - 18093 Large joint: 24673 - Large joint ([id number])
--- OUTSIDE RECORDS SUMMARY | 2025-02-23 18:16 | XMS_ITS | Clinical Summary ---
Author Organization [facility] Address [address] [place] [address] Phone Care Team Providers Care Industrial Engineering Director Name Role Phone Liv Berger [employer] Primary Care Provider [phone] Medications amLODIPine (NORVASC) 5 mg tablet TAKE 1 TABLET BY MOUTH EVERY DAY 90 tablet 1 01/16/2025 Active Active Problems Problem Noted Date Diagnosed Date Splenic artery aneurysm (CMS/HCC V24) 01/18/2025 HTN (hypertension), benign 01/18/2025 Mild intermittent asthma without complication Dysthymia 01/18/2025 Anxiety 01/18/2025 Gastroesophageal reflux disease without esophagi tis 01/18/2025 Encounters Date Type Department Care Team Description 02/23/2025 Telephone Internal [facility] - [facility] [address] [facility] [place] [address] Liv Berger NP Labs Only 01/18/2025 Telephone Internal Medicine - [facility] [address] [place] [address] SCAN NEEDED from Last 3 Months Surgical History Surgery Date Site/Laterality Comments KNEE SURGERY 2017 Left PROCEDURE:KNEE SURGERY;COMMENT:MENISCUS REPAIR EXPLORATORY LAPAROTOMY 1979 PROCEDURE:EXPLORATORY LAPAROTOMY CHOLECYSTECTOMY 2017 PROCEDURE:CHOLECYSTECTOMY OTHER SURGICAL HISTORY 2009 PROCEDURE:PALATE / UVULA BIOPSY / EXCISION;COMMENT:REMOVAL OF GROWTH OTHER SURGICAL HISTORY PROCEDURE:ID PELVIC EXAMINATION W/ANESTHESIA OTHER THAN LOCAL;COMMENT:? COLD KNIFE CONE JOINT REPLACEMENT PROCEDURE:JOINT REPLACEMENT TOTAL HIP ARTHROPLASTY 01/29/2018 Left PROCEDURE:TOTAL HIP ARTHROPLASTY;COMMENT:Procedure: REPLACEMENT TOTAL HIP; Surgeon: Wilbert River MD; Location: [facility] Service: Orthopedics; Laterality: Left; CHOLECYSTECTOMY 09/07/2017 PROCEDURE: HISTORICAL CHOLECYSTECTOMY OTHER SURGICAL HISTORY PROCEDURE: ID EXPLORATORY LAPAROTOMY CELIOTOMY W/WO BIOPSY SPX HIP [...] DX:GERD (gastroesophageal reflux disease);COMMENT:OMEPRAZOLE Deep vein thrombosis (CMS/HC C V24, CMS/HCC V28) DX:Deep vein thrombosis (HCC);COMMENT:SISTER Urinary urgency DX:Urinary urgen [...] 06/10/2024 2:40 PM EDT Plan of Treatment Upcoming Encounters Date Type Department Care Team (Late st Contact Info) Description 02/24/2025 3:30 PM EDT Appointment [facility] CT Scan [address] [place] [address] 02/28/2025 2:30 PM EDT [facility] [address] [place] [address] Liv Berger, LIZA [address] [place] [address] 07/07/2025 10:20 AM EST Office Visit [facility] [address] [address] Rich Brock MD [address] [address] Health Maintenance Due Date Last Done Comments DTaP,Tdap,and Td Vaccines (1 - Tdap) 01/23/1972 Zoster Vaccines (1 of 2) 2003 RSV Immunization Adult Patients (1 - Risk 60-74 years 1-dose series) [...] age to complete this topic Meningococcal B Vaccine Aged Out No l onger eligible based on patient's age to complete this topic RSV Immunization Patients Under 20 months Aged Out No longer eligible based on patient's age to complete this topic Varicella Vaccines Aged Out No longer eligible based on patient's age to complete this topic Procedures Procedure Name Priority Date/Time Associated Diagnosis Comments [facility] SCREENING DIGITAL Routine 07/08/2023 5:49 PM EST Encounter for screening mammogram for malignant neoplasm of breast [facility] DEXA AXIAL SKELETON Routine 07/05/2022 3:50 PM EDT Encounter for screening for osteoporosis from Last 3 Months or Most Recently Relevant to Health Maintenance Results * [facility] SCREENING DIGITAL (07/08/2023 5:49 PM EST) Anatomical Region Laterality Modality Mammography 07/08/2023 11:0 0 AM EST Narrative 07/08/2023 5:49 PM EST [facility] Diagnostic Imaging Department [address] [place] [address] Patient: CLSALENAMAGDIEL Adler./Age/Sex: 1955 - 68 - F Unit#: [id number] Location/Status: SPDIMAM/REG CLI Mnemonic/Ordering Site: [facility] [place] Ordering Physician: JOSE VENCES APRN [facility] - 07/08/23 - 1130 Report Status:Signed EXAM: [facility] EXAM DATE AND TIME: 07/08/2023 11:30 AM HISTORY: Screening. COMPARISON: 07/04/22, 06/14/21, 10/30/17 TECHNIQUE: Bilateral digital breast tomosynthesis was performed in the CC and MLO projections. Computer aided detection with [employer] 3D 3.1 was employed. TISSUE DENSITY: b. There are scattered areas of fibroglandular density. FINDINGS: No suspicious masses, grouped microcalcifications, or areas of architectural distortion are seen. Benign calcifications are again seen bilaterally, including benign rim calcifications. Vascular calcification is present. The skin is unremarkable. IMPRESSION: Stable mammographic appearance of the breasts. No evidence of malignancy is seen. A negative mammogram in the presence of a clinically suspicious palpable abnormality does not preclude the possibility of malignancy or alter the indications for biopsy. BI-RADS: Category 2: Benign RECOMMENDATION(S): 1: Routine screening mammogram BILATERAL in 1 year. Dictating Physician: SHANNAN DREW MD Electronically Signed by: SHANNAN DREW MD Dic Date/Time: 07/08/231747 Sign date/Time: 07/08/231748 Procedure Note Shannan Drew MD - 10/06/2023 [facility] Diagnostic Imaging Department [address] [place] [address] Patient: CLSALENA /Age/Sex: 1955 - 68 - F Unit#: [id number] [facility] CLI Mnemonic/Ordering Site: [facility] [place] Ordering Physician: JOSE VENCES APRN [facility] - 07/08/23 - 1130 Report Status:Signed EXAM: [facility] EXAM DATE AND TIME: 07/08/2023 11:30 AM HISTORY: Screening. COMPARISON: 07/04/22, 06/14/21, 10/30/17 TECHNIQUE: Bilateral digital breast tomosynthesis was performed in the CCand MLO projections. Computer aided detection with [employer] 3D 3.1was employed. TISSUE DENSITY: b. There [...] 07/08/231747 Sign date/Time: 07/08/231748 Liv Berger NP IM BI PROCEDURES Final Result * [facility] DEXA AXIAL SKELETON (07/05/2022 3:50 PM EDT) Anatomical Region Laterality Modality Mammography 07/04/2022 2:08 PM EDT Narrative 07/05/2022 3:50 PM EDT [facility] Diagnostic Imaging Department [address] [place], [place] [id number] Patient: SALENA SMALLWOOD /Age/Sex: 1955 - 67 - F Unit#: [id number] [facility] [place] Ordering Physician: DENNIS TIMMONS MD [facility] Axial Skeleton - 07/04/22 History: Low estrogen state due to menopause. History of fracture. Prior left total hip arthroplasty. Findings: Bone densitometry is performed utilizing dual energy x-ray absorptiometry (DXA) in the [employer] unit. The lumbar spine and proximal femora are evaluated in the AP projection. The FRAX questionaire was completed. The results indicate low bone mass (osteopenia), with a right femoral neck T- score of -2.2. The Z score is -0.9, indicating the patient's bone mineral density is considered within normal limits relative to age. The detailed DEXA report will be mailed to the referring physician's office. [employer] FRAX: 10-year Probability of Fracture: Major Osteoporotic 19.6 percent Hip 4.0 percent. IMPRESSION: Osteopenia. [id number] Dictating Physician: SHANNAN DREW MD Electronically Signed by: SHANNAN DREW MD Dic Date/Time: 07/05/22 1548 Sign date/Time: 07/05/22 155 Procedure Note Shannan Drew MD - 10/02/2023 [facility] Diagnostic Imaging Department [address] [place] [address] Patient: CLETELVINASALENA /Age/Sex: 1955 - 67 - F Unit#: [id number] [facility] [place] Ordering Physician: DENNIS TIMMONS MD [facility] Axial Skeleton - 07/04/22 - 150 History: Low estrogen state due to menopause. History of fracture. Priorleft total hip arthroplasty. Findings: Bone densitometry is performed utilizing dual energy x-ray absorptiometry(DXA) in the [employer] unit. The lumbar spine and proximal femora [...] 19.6 percent Hip 4.0 percent. IMPRESSION: Osteopenia. [id number] Dictating Physician: SHANNAN DREW MD Electronically Signed by: SHANNAN DREW MD Dic Date/Time: 07/05/22 1548 Sign date/Time: 07/05/22 1550 Dennis Timmons MD IMG BI PROCEDURES Final Re sult from Last 3 Months or Most Recently Relevant to Health Maintenance Insurance MEDICARE BLUE CROSS - [place] MEDICARE ADVANTAGE Care Teams Industrial Engineering Director Relationship Specialty Start Date End Date Liv Berger NP [address] [place] [address] [facility] - General 09/16/22
== END 2025-02-23 15:49 | disposition home or self-care (01) ==
LOC: HO.HOS 15:03
PROVIDERS: PCP Nurse Practitioner Primary Care; Visit Provider Orthopaedic Surgery
DX: M25.511 Pain in right shoulder (principal); M25.811 Other specified joint disorders, right shoulder
CPT/HCPCS: 20610; 99213

== ENCOUNTER 2025-02-23 15:03 | Outpatient (REF) | payer MEDICARE, SELFPAY ==
--- NOTE | ~2025-02-23 | XR_ITS ---
EXAMINATION: XR SHOULDER, RIGHT CLINICAL INFORMATION: M25.511 - Pain in right shoulder COMPARISON: None available. TECHNIQUE: AP neutral and scapular Y view of the right shoulder. FINDINGS: Moderate medial osteophyte is present involving the humeral head. There is a calcified body ejecting in the region of the axillary pouch measuring 6 x 11 mm. There is no dislocation. AC joint is intact and not degenerated. XR/XR shoulder RT min 2V IMPRESSION: Moderate degenerative change of the right glenoid humeral joint with possible 6 x 11 mm calcified intra-articular body. Electronically signed by: Saurav Powell MD 02/23/2025 04:52 PM EDT
== END 2025-02-23 15:04 | disposition home or self-care (01) ==
LOC: HO.HOSX 15:03
PROVIDERS: PCP Nurse Practitioner Primary Care; Visit Provider Orthopaedic Surgery
DX: M25.511 Pain in right shoulder (principal); M25.811 Other specified joint disorders, right shoulder
CPT/HCPCS: 20610; 73030; 99212; J1010; J2003

== ENCOUNTER → 2025-02-23 15:16 | Outpatient (BNV) | payer MEDICARE, SELFPAY | PROVIDERS: PCP Nurse Practitioner Primary Care; Visit Provider Radiology Diagnostic Radiology | DX: M19.011 Primary osteoarthritis, right shoulder (principal) | CPT/HCPCS: 73030 ==

== ENCOUNTER 2025-05-25 15:04 | Outpatient (AMB) | payer MEDICARE, SELFPAY ==
--- NOTE | 2025-05-25 15:12 | MHC.OFFVIS ---
Intake Visit Reasons: OV-Right shoulder inj-Last 02/23/25 Intake Note: Salena 70 yr old female who presents with complaints of right shoulder pain. She describes her pain as achy in nature. She has had cortisone injections in the past which gave her fairly good relief. She wishes to hold off on total shoulder replacement surgery if at all possible. She has taken meloxicam which gives her mild relief. Allergies house dust Allergy (Severe, Verified 05/25/25 15:14) Sneezing pollen extracts Allergy (Severe, Verified 05/25/25 15:14) Sneezing erythromycin base Adverse Reaction (Severe, Verified 05/25/25 15:14) Diarrhea Medication List - Last Reconciled 05/25/25 by Troy Peterson MD amlodipine 5 mg PO DAILY citalopram 30 mg PO DAILY meloxicam 15 mg PO DAILY PFSH Social History Alcohol intake: current Alcohol intake frequency: holidays/special occasions only Patient Tobacco Use Status: Never used Tobacco Current occupational status: retired Physical Exam Const Other: Well-nourished well-developed very friendly female awake alert and oriented x3 in no acute distress Extrem Other: Right shoulder examination shows decreased range of motion when compared to her left shoulder, positive impingement signs, no instability Office Procedures AMB Joint Injection/Aspiration Joint Injection/Aspiration Primary Site: right shoulder Prep: site was prepped using aseptic technique Injected: 40 mg of, DepoMedrol and 1% plain lidocaine Procedure: The patient tolerated the procedure well Coding 13752 - Large joint Procedure code (CPT) selection complete Assessment & Plan Assessment & Plan (1) Impingement of right shoulder: Code(s): M25.811 - Other specified joint disorders, right shoulder Category: Medical Plan Ms. Martinez presents with right shoulder pain due to impingement syndrome and glenohumeral joint arthritis. The risks and benefits of a right shoulder cortisone injection were discussed at length with the patient. The patient wished to proceed. She tolerated the injection well. She will continue with her home stretching program. She will contact me prior to her follow-up appointment in 3 months should any questions or concerns arise. Feel free to call me at any time should questions regarding her orthopedic management arise. I spent 20 minutes in reviewing the patient's records and imaging studies, seeing the patient and documenting in the medical record. Orders: Orders AMB Joint Injection/Aspiration Today M25.811 - Other specified joint disorders, right shoulder Coding Level of Care Code Est Pt Level 3 (72843) Complex EM visit Add On G2211 Diagnoses Impingement of right shoulder M25.811 CPT Codes Coding - 56932 Large joint: 18228 - Large joint ([id number])
--- OUTSIDE RECORDS SUMMARY | 2025-05-25 19:22 | XMS_ITS | Clinical Summary ---
Author Organization [facility] Address [address] [place] [address] Care Team Providers Care Polyethylene Combiner Name Role Phone Yoan Timmons MD Primary Care Provider [phone] Allergies Active Allergy Reactions Criticality Noted Date [...] 80 11/18/2018 3:09 PM EDT Temperature 36.6 C (97.8 F) 02/18/2018 1:27 PM EDT Respiratory Rate 16 01/30/2018 9:00 AM EDT [...] 1 - PCV) 2018 Influenza Vaccine (#1) 2025 RSV Adult > 60+ Yrs or Pregn ant (1 - 1-dose 75+ series) 01/23/2028 Hepatitis B Vaccines Aged Out No long er eligible based on patient's age to complete this topic RSV Ped < 20 months Aged Out No longe r eligible based on patient's age to complete this topic Medical Devices Implanted Type Area Agricultural Economist Device Identifier Shelf Expiration Date Model / Serial / Lot Shell Acetabular G7 Pps F Hemisphere Od54 Mm Limited Hole - [id number] - [id number] Implanted:Qty: 1 on 01/29/2018 by Wilbert River MD at [facility] Left: Hip [employer] 09/14/2027 [id number] / / [id number] Screw Trilogy 35mm 6.5mm Self Tap Tivanium Bone Cortex Hip - [id number] - [id number] Implanted:Qty: 1 on 01/29/2018 by Wilbert River MD at [facility] and [facility] Left: Hip [employer] 09/30/2026 [id number] / / [id number] Screw Trilogy 35mm 6.5mm Self Tap Tivanium Bone Cortex Hip - [id number] - [id number] Implanted:Qty: 1 on 01/29/2018 by Wilbert River MD at [facility] and [facility] Left: Hip [employer] 11/29/2027 [id number] / / [id number] Liner Acetabular G7 Arcomxl F Neutral Od36 Mm - [id number] - [id number] Implanted:Qty: 1 on 01/29/2018 by Wilbert River MD at [facility] Left: Hip [employer] 02/03/2022 [id number] / / [id number] Head +3mm 36mm Modular Tapered High Definition Cocr Femoral - [id number] - [id number] Implanted:Qty: 1 on 01/29/2018 by Wilbert River MD at [facility] Left: Hip [employer] 06/08/2027 [id number] / / [id number] Stem Taperloc 148mm 133d 14 High Offset Taper Type 1 - [id number] - [id number] Implanted:Qty: 1 on 01/29/2018 by Wilbert River MD at [facility] and [employer] [id number] / / Advance Directives For more information, please contact: [phone] Latest Code Status on File Code Status [...] way: discussion with patient . Care Teams Polyethylene Combiner Relationship Specialty Start Date End Date Yoan Timmons MD [address] [facility] [address] [place] [address] PCP - General Internal Medicine 04/28/17
--- OUTSIDE RECORDS SUMMARY | 2025-05-25 19:23 | XMS_ITS | Patient Health Record ---
Author Organization [facility] Address [address] [facility] [place] [address] Care Team Providers Care Earth Science Professor Name Role Phone Shanelle SARABIA, Yoan Primary Care Provider Katy Amarjit Alberto Unavailable [phone] Allergies Allergen (clinical drug ingredient) Drug/Non Drug Allergy documented on EMR Reaction Allergy Type Onset Date Status meperidine Demerol nausea Drug Allergy Active adhesive tape irritation of skin Drug Allergy Active Latex Unknown Drug Allergy Active Reason For Referral No Information Medications Medication SIG (Take, Route, Frequency, Duration) Notes Start Date End Date Status ProAir HFA 108 (90 Base) MCG/ACT TAKE 2 PUFFS BY MOUTH 4 TIMES A DAY NEEDED Inhalation; Duration: 25 PRN Active predniSONE 5 MG TAKE 1 TABLET BY MOUTH TWICE A DAY Oral; Duration: 13 PRN Active Klor-Con/EF 25 MEQ TAKE 1 TABLET BY MOUTH EVERY DAY Oral; Duration: 30 Active Lexapro 20 MG 0.5 tablet Orally Once a day 11/09/2017 Active hydroCHLOROthiazide 25 MG TAKE 1 TABLET BY MOUTH EVERY DAY Oral; Duration: 90 Active ALPRAZolam 0.5 MG (Schedule IV Drug) TAKE 1 TABLET BY MOUTH 3 TIMES A DAY Oral; Duration: 5 Not-Taking Azithromycin 250 MG TAKE 2 TABLETS BY MOUTH TODAY, THEN TAKE 1 TABLET DAILY FOR 4 DAYS Oral; Duration: 5 Not-Taking Montelukast Sodium 10 MG 1 tablet in the evening Orally Once a day 11/09/2017 Active Omeprazole 20 MG 1 tablet Orally Once a day 11/09/2017 Active Social History Tobacco Use: Social History Observation Description Date Details (start date - stop date) Never Smoker NA - NA Tobacco Use/Smoking Question Answer Notes Are you a: nonsmoker Additional Findings: Tobacco Non-User Current no n-smoker Alcohol Screen Question Answer Notes Did you have a drink containing alcohol in the p ast year? Yes Points 0 Interpretation Negative Tobacco use other than smoking: Question Answer Notes Are you an other tobacco user? No Plan Of Treatment No Information Insurance Providers Payer Name Payer Address Payer Phone Subscriber Number Group Number Insured Name Patient Relationship to Insured Coverage Start Date Coverage End Date [facility] [address] [facility] [place] [address] [id number] Salena Martinez Self - patient is the insured Medical (General) History Medical History History ICD Code Anxiety disorder asthma Back,Hip,and Knee pain Broken bones Cholesterol Depression Gall bladder problems Hypertension Reflux ( GERD) Scarlet fever chronic sinusitis Warts Measles Mumps Chicken pox Surgical History Surgery Date(Month/Year) laparotomy 1980 Meniscus repair 2017 gall bladder 2018 removal of growth from uvula 2010 Hospitalization History Reason Date(Month/Year) Gall bladder surgery 2018 MRI Right foot/heel 01/06/17
--- OUTSIDE RECORDS SUMMARY | 2025-05-25 19:23 | XMS_ITS | Data Portability ---
Author Organization [place] [facility] [place] Address [address] [place] [address] Care Team Providers Care Physical Therapy Nurse Name Role Phone DENNIS MCCRARY Primary Care [...] findings at length with the patient today. We discussed the nature and etiology of this problem along with current treatment options. We discussed the expected course and outcomes and what to expect. We also discussed risks and benefits. All of their questions were answered today, and there was exhibited understanding and comprehension of all that was discussed. Time Spent: 10 minutes were spent reviewing previous imaging and charting. 10 minutes were spent obtaining patient history. 5 minutes were spent on physical exam. 5minutes were spent explaining diagnosis and assessment. Today's [...] findings at length with the patient today. We discussed the nature and etiology of this problem along with current treatment options. We discussed the expected course and outcomes and what to expect. We also discussed risks and benefits. All of their questions were answered today, and there was exhibited understanding and comprehension of all that was discussed. Time Spent: 10 minutes were spent reviewing previous imaging and charting. 10 minutes were spent obtaining patient history. 5 minutes were spent on physical exam. 5minutes were spent explaining diagnosis and assessment. Today's [...] view 2023 024 [email or web address] 2 [facility], [address], [place], [address], 4 16:44:11 XR, knee, 4 or more view 2023 024 [email or web address] 2 [facility], [address], [place], [address], 4 16:44:11 XR, shoulder, 2 or more view 2023 024 [facility], [address], [address] [facility] [place], [place], [address], 07:07:45 Medication Orders lidocaine (PF) 10 mg/mL (1 %) injection solution [address]/[facility]armacy #0843, [address] [place], [address], 4 15:48:15 triamcinolo ne acetonide 40 mg/mL suspension for injection [address]/Pharmacy #0843, [address] [place], [address], 4 15:48:15 meloxicam 15 mg tablet 2023 [facility]/Pharmacy #0843, [address] [place], [address], 14:51:41 lidocaine (PF) 10 mg/mL (1 %) injection solution [address]/Pharmacy #0843, [address] [place], [address], 4 14:37:17 triamcinolo ne acetonide 40 mg/mL suspension for injection [address]/Pharmacy #0843, [address] [place], [address], 4 14:38:06 meloxicam 15 mg tablet 2023 024 [facility]/Pharmacy #0843, [address] [place], [address], 4 16:37:58 Kenalog 40 mg/mL suspension for injection [address]/Pharmacy #0843, [address] [place], [address], 14:38:06 lidocaine (PF) 100 mg/5 mL (2 %) injection syringe 2023 [address] [place] [address], [address], 14:37:19 Kenalog 40 mg/mL suspension for injection 2022 023 [address] [place] [address], [address], 14:38:06 lidocaine (PF) 10 mg/mL (1 %) injection solution 2022 023 [address], [address] [place] [address], [address], 14:37:17 Patient TargetsNo targets recorded. Patient Instructions Encounter Date Encounter Id Patient Instructions Last Modified By Organization Details Last Modified Time 08/20/2023 [id number] You have been provided with a cortisone [...] following the injection. This is called a f lare . To help minimize the chances of this, please see the post-injection instructions above. There is a less than 1% chance of an infection. If you notice any signs of infection (redness, warmth, drainage, fever greater than 100 degrees) please call our office or contact us through the portal ABBIE. Not available 08/20/2023 14:56:06 11/25/2023 [id number] You have been provided with a cortisone [...] hours following the injection. This is called eloina vaz . To help minimize the chances of this, please see the post-injection instructions above. There is a less than 1% chance of an infection. If you notice any signs of infection (redness, warmth, drainage, fever greater than 100 degrees) please call our office or contact us through the portal ABBIE. Not available 11/25/2023 14:45:40 [facility] reveal severe xzrt-ew-jqqz articulation glenohumeral arthritis, AC joint arthrosis without acute bony abnormality. Not available 11/25/2023 15:26:45 01/21/2024 [id number] 7 view X-ray sole dy obtained during today's office encounter show evidence of mild left knee osteoarthritis. There is joint space narrowing, subchondral sclerosis and marginal osteophytosis. Kellgren-Maximiliano grade 1. No evidence of acute fracture or osteolytic findings. 4 view x-ray study of left hip obtained during today's office encounter does not show any signs of implant related issues including loosening, malposition, instability, periprosthetic fracture, periosteal reaction or infection. There is increased cortical thickening of the proximal medial femoral metaphysis suggestive of stress shielding. The remaining cortices are of normal thickness. Again, there is no evidence for fracture or loosening. Not available 01/21/2024 16:37:56 02/25/2024 [id number] You have been provided with a cortisone [...] following the injection. This is called a aubrey vaz . To help minimize the chances of [...] the bones. Not available 02/25/2024 16:26:14 06/23/2024 [id number] You have been provided with a cortisone [...] hours following the injection. This is called eloina vaz . To help minimize the chances of [...] Name and Address Organization Details Recorded Time Problem 40967992 Active No known active problems Not Available [facility] 5 23:09:44 Pain of left knee joint 32645625583 4107 Active 2016 Arthralgi a of left knee Not Available [facility] 5 23:09:42 History of arthrosco py of knee joint 386133713 Active 2016 Status post arthrosco py of left knee Not Available [facility] 5 23:09:43 Osteoarth ritis of left hip joint 55865348583 9108 Active 2017 Osteoarth ritis of left hip Not Available [facility] 5 23:09:41 Bone cyst 192568100 Active 2017 Subchondr al cyst Not Available [facility] 5 23:09:42 Leg length inequalit y 88492528 Active 2017 Lower limb length differenc e Not Available [facility] 5 23:09:44 Pain of hip region 34124831 Active 2017 Left hip pain Not Available [facility] 5 23:09:44 Arthritis of right glenohume ral joint 25953583011 48506 Active 2022 Arthritis of right glenohume ral joint Not Available [facility] 5 23:09:42 Strain of thoracic region 80499720 Active 2022 Rhomboid muscle strain Not Available [facility] 5 23:09:43 Osteoarth ritis of right glenohume ral joint 63006390760 59879 Active 2022 LALI ENGLAND PA-C [address], [place], [address] , [place] [facility] 3 20:42:43 Pain of right hip joint 48764095664 9102 Active 2022 LALI ENGLAND PA-C [address], [place], [address] , [place] [facility] 3 13:34:03 Pain in pelvis 43696349 Active 2022 LALI ENGLAND PA-C [address], [place], [address] , [place] [facility] 3 14:54:33 Abrasion of skin of right knee 10331640724 313587 Active 2023 LALI ENGLAND PA-C [address], [place], [address] , [place] [facility] 4 15:27:49 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 Procedures Surgical History Date Name Laterality Status Provider Name and Address Organization Details Recorded Time 06/23/20 24 LES Shoulder Interarticular Inj completed Johanne Umana MD [address], [place], [address], [place] [facility] 06/23/2024 15:17:31 02/25/20 24 LES Shoulder Interarticular Inj completed Johanne Umana MD [address], [place], [address], [place] [facility] 02/25/2024 16:25:26 11/25/19 24 Shoulder Joint/Bursa Asp & Inj completed LALI ENGLAND PA-C [address], [place], [address], [place] [facility] 11/25/2023 14:45:58 08/20/20 23 Shoulder Joint/Bursa Asp & Inj completed LALI ENGLAND PA-C [address], [place], [address], [place] [facility] 08/20/2023 14:54:31 05/07/20 23 Shoulder Joint/Bursa Asp & Inj completed LALI ENGLAND PA-C [address], [place], [address], [place] [facility] 05/07/2023 13:29:19 01/03/20 23 Shoulder Joint/Bursa Asp & Inj completed LALI ENGLAND PA-C [address], [place], [address], [place] [facility] 01/04/2023 20:42:37 Imaging Results None recorded. Procedure Notes None recorded. Medical Equipment None Reported. Allergies Allergen ID Allergen Name Allergen Category Reaction Reaction Severity Criticality Documentation Date Start Date Code Code System Note Provider Name and Address Organization Details Recorded Time 39302 erythromy kenyon medicatio n Not available Not available Not available 05/23/20252016 4053 RxNorm React ion: Diarr hea, sever ity: Unkno wn Not Available [facility] 5 01:16:34 63602 iodine medicatio n Not available Not available Not available 05/23/20252017 5933 RxNorm Not Available [facility] 5 01:16:34 39414 latex environme nt,medica tion Not available Not available Not available 05/23/20252017 04501 91 RxNorm React ion: Rash, sever ity: Unkno wn Not Available [facility] 5 01:16:34 Medications Name Sig Start Date Stop Date Status Note LastModified by Organization Details LastModified Time amoxicillin 500 mg capsule TAKE 4 CAPS ONE HOUR PRIOR TO DENTAL PROCEDURE 2017 active Not Available Not Available Not Avai lable clotrimazol e 10 mg siddhartha TAKE 1 [...] completed Not Available Not Available Not Available atorvastati n 10 mg tablet TAKE 1 TABLET BY MOUTH EVERY DAY 2017 active Not Available Not Available Not Avai lable tizanidine 4 mg tablet TAKE 1 TABLET [...] Not Available Not Available Not Avai lable bupivacaine HCl 0.5 % (5 mg/mL) injection solution 10/02 completed Not Available Not Available Not Available prednisone 20 mg tablet TAKE 3 TABS BY MOUTH FOR 3 DAYS THEN 2X3,1X3,0 .5X4. BETTER IN THE AM W/FOOD active Not Available Not Available No t Available sennosides 8.6 mg-docusate sodium 50 mg tablet Take 1 tablet by mouth 2 (two) times a day. 2017 active Not Available Not Available Not Avai lable prednisone 5 mg tablet TAKE 1 TABLET BY MOUTH EVERY DAY active Not Available Not Available No t Available metronidazo le 250 mg tablet TAKE 1 TABLET BY MOUTH THREE TIMES A DAY FOR 7 DAYS 08/20 completed Not Available Not Available Not Available amlodipine 5 mg tablet TAKE 1 TABLET BY MOUTH EVERY DAY active Not Available Not Available No t Available aspirin 81 mg tablet,chrystal yed release Take 1 tablet (81 mg total) by mouth 2 (two) times a day after meals. 2017 active Not Available Not Available Not Avai lable triamcinolo ne acetonide 0.1 % topical cream APPLY TOPICALLY TWO TIMES PER DAY FOR 15 DAYS active Not Available Not Available No t Available alprazolam 0.5 mg tablet Take 0.5 mg by mouth every night at bedtime as needed for sleep. active Not Available Not Available No t Available citalopram 20 mg tablet TAKE 1 TABLET BY MOUTH EVERY DAY IN THE MORNING active Not Available Not Available No t Available methocarbam ol 750 mg tablet Take 1 tablet (750 mg total) by mouth every 6 (six) hours as needed (muscle spasm). 10/01 completed Not Available Not Available Not Available triamcinolo ne acetonide 40 mg/mL suspension for injection Take 40 mg by injection route. 2023 active Not Available Not Available Not Avai lable methylpredn isolone acetate 40 mg/mL suspension for injection 05/29 completed Not Available Not Available Not Available ascorbic acid (vitamin C) 500 mg chewable tablet Take 500 mg by mouth daily. active Not Available Not Available No t Available omeprazole 20 mg capsule,del ayed release Take 20 mg by mouth daily. active Not Available Not Available No t Available montelukast 10 mg tablet Take 10 mg by mouth every night at bedtime. active Not Available Not Available No t Available pravastatin 20 mg tablet Take 20 mg by mouth daily. 2017 active Not Available Not Available Not Avai lable hydrochloro thiazide 25 mg tablet Take 25 mg by mouth daily. active Not Available Not Available No t Available albuterol sulfate HFA 90 mcg/actuati on aerosol inhaler INHALE 2 PUFFS EACH 3 TIMES PER DAY (COUGH) PRN active Not Available Not Available No t Available potassium bicarbonate -citric acid 25 mEq effervescen t tablet Take 25 mEq by mouth daily. active Not Available Not Available No t Available amoxicillin 875 mg-potassiu m clavulanate 125 mg tablet TAKE 1 TABLET BY MOUTH TWICE A DAY FOR 10 DAYS 08/20 completed Not Available Not Available Not Available oxycodone 5 mg tablet Take 1-2 tablets (5-10 mg total) by mouth every 4 (four) hours as needed for pain. 2017 active Not Available Not Available Not Avai lable escitalopra m 20 mg tablet Take 20 mg by mouth daily. active Not Available Not Available No t Available bromfenac 0.09 % eye drops INSTILL 1 DROP TO THE RIGHT EYE ONCE A DAY FOR 6 WEEKS DIRECTED 08/20 completed Not Available Not Available Not Available lidocaine (PF) 10 mg/mL (1 %) injection solution Take 2 mL by injection route. 2023 active Not Available Not Available Not Avai lable loratadine 10 mg capsule Take 10 mg by mouth daily. active Not Available Not Available No t Available lidocaine (PF) 100 mg/5 mL (2 %) [...] [place] Connor [place] [facility] 02/25/2024 15:58:29 Date Recorded Body height Provider Name an d Address Organization Details Last Updated DateTime 06/23/[address] [facility] 06/23/2024 14:38:09 Date Recorded Body height Provider Name an d Address Organization Details Last Updated DateTime 08/20/[address] [place] [facility] 08/20/2023 14:33:11 Social History None recorded. Functional Status None recorded. Mental Status None recorded. Family History Relationship Description Onset Age of this Age Resolved Age Notes LastModified by Organization Details LastModified Time Mother Hypertensive disorder [email or web address] Not available 2022 13:51:22 Sister Hypertensive disorder [email or web address] Not available 2022 13:51:22 Medical History Condition Response Osteopenia Y Hypertension Y Asthma Y Gynecological HistoryNo gynecological history recorded. Obstetrics History GPAL:G 0 P 0 0 0 0 Past Encounters Encounter ID Performer Location Encounter Start Date Encounter Closed Date Diagnosis/Indication Diagnosis SNOMED-CT Code Diagnosis ICD10 Code Diagnosis IMO Codes Diagnosis Note 1972 MD THOMAS [place] [address] [facility] [address] [place] [address] 11/21/2022 13:43:19 11/21/2022 14:17:58 [id number] YESSENIA FRIEDMAN [place] [address] [facility] [address] [place] [address] 01/02/2023 15:04:40 01/02/2023 16:04:10 Osteoarthritis of right glenohumeral joint 5106402477 957643 M19.011 [id number] YESSENIA FRIEDMAN [place] [address] [facility] [address] [place] [address] 05/07/2023 12:50:44 05/07/2023 13:26:51 Pain in pelvis 16452398 R10.2 Osteoarthr itis of right glenohumeral joint 7056329730 178535 M19.011 Pain of ri ght hip joint 0862615997 98863 M25.551 [id number] YESSENIA FRIEDMAN [place] [address] [facility] [address] [place] [address] 08/20/2023 14:24:46 08/20/2023 14:51:43 Osteoarthritis of right glenohumeral joint 7749791738 558741 M19.011 [id number] YESSENIA FRIEDMAN [place] [address] [facility] [address] [place] [address] 11/25/2023 14:43:16 11/25/2023 15:22:05 Pain of right shoulder joint 7075913915 9356794 M25.511 Additional diagnosis detail: Pain in joint of right shoulder Osteoarthr itis of right glenohumeral joint 4126483935 874163 M19.011 Abrasion o f skin of right knee 5441956885 4331997 S80.211A Additional diagnosis detail: Abrasion of right knee, initial encounter [id number] YESSENIA REINOSO [place] [address] [facility] [address] [place] [address] 01/21/2024 15:47:12 01/21/2024 16:44:10 Osteoarthritis of left knee joint 9251953284 61064 M17.12 Additional diagnosis detail: Primary osteoarthr itis of left knee History of total replacement of left hip joint 0668821037 495563 Z96.642 Additional diagnosis detail: [place] [id number] [facility] [address] [facility] [address] [place] [address] 02/25/2024 15:47:43 02/25/2024 16:22:40 Osteoarthritis of right glenohumeral joint 6371598818 023041 M19.011 [id number] [facility] [address] [facility] [address] [place] [address] 06/23/2024 14:27:55 06/23/2024 14:51:17 Osteoarthritis of right glenohumeral joint 3117459167 259168 M19.011 Health Concerns Section Related Observation LastModified by Organization Detai ls LastModified Time None Recorded Concern Status LastModified by Organization Details LastModified Time None Recorded Advance Directives Directive None Recorded Payers Insurance Date Sequence Insurance Name Policy Number Policy Ardon Covered Member ID Ardon Member ID Guarantor Name 06/23/2024 1 [place] [employer] Salena Martinez [id number] Salena S Juan 06/23/2024 2 [place] [id number] Salena Martinez [id number] Salena Martinez Notes Date Note Type Note Provider Name and Address Organization Details Recorded Time 08/20/2023 text/html This is a 68-year-old female that was last seen on 05/07/2023 had cortisone injection of the right shoulder due to glenohumeral arthritis. She states this gave her 100% relief . She states she has returning symptoms of generalized right shoulder pain. LALI ENGLAND PA-C [address] [facility] [address], [place], [address], [place] [facility] 08/20/2023 14:57:39 11/25/2023 text/html This is [...] walking without difficulty. LALI ENGLAND PA-C [address] [facility],[address] [address], [place], [address], [facility] - [facility] 11/25/2023 15:28:29 01/21/2024 text/html 68-year-old female presents with left thigh pain. She reports [...] functioning and pain-free. LALI LAWRENCE PA-C [address] [facility],[address] [address], [place], [address], [facility] - [facility] 01/21/2024 16:38:54 02/25/2024 text/html ROS as noted in the HPI This is a 69-year-old ekiao-dmjo-wnwubhc t female who presents with right shoulder [...] be addressed today. Johanne Umana MD [address] [facility] [address], [place], [address], [facility] - [facility] 02/25/2024 16:27:12 06/23/2024 text/html ROS as noted in the HPI She presents for follow-up of her right shoulder glenohumeral joint arthritis, status post a steroid injection on 02/25/2024. She says this is lasted for about 4 months. She notes pain with certain activities. She has been doing activity modification. She takes meloxicam from time to time if she has increasing pain. Johanne Umana MD [address] [place] [address], [address], [place] [facility] 06/23/2024 15:18:57 OBGyn Episode No OBEpisode recorded.
--- OUTSIDE RECORDS SUMMARY | 2025-05-25 19:23 | XMS_ITS ---
Author Name [facility] Organization Unknown History of Medication Use Medication Directions Dispensed Refills Start Date End Date Stat triamcinolone acetonide 40 mg/mL suspension for injection Take 40 mg by injection route. 02/25/2024 active meloxicam 15 mg tablet Take 1 tablet every day by oral route as needed. 01/21/2024 active Klor-Con/EF 25 mEq effervescent tablet TAKE 1 TABLET BY MOUTH EVERY DAY 06/23/2024 active omeprazole 20 mg capsule,delayed release TAKE 1 CAPSULE BY MOUTH EVERY DAY 06/23/2024 active tizanidine 4 mg tablet TAKE 1 TABLET BY MOUTH THREE TIMES A DAY NEEDED 06/23/2024 active bromfenac 0.09 % eye drops INSTILL 1 DROP TO THE RIGHT EYE ONCE A DAY FOR 6 WEEKS DIRECTED 08/20/2023 completed escitalopram 20 mg tablet TAKE 1 TABLET BY MOUTH EVERY DAY 08/20/2023 completed lidocaine (PF) 10 mg/mL (1 %) injection solution active amlodipine 5 mg tablet TAKE 1 TABLET BY MOUTH EVERY DAY active clotrimazole 10 mg siddhartha TAKE 1 SIDDHARTHA BY MOUTH 5 TIMES DAILY FOR 10 DAYS. active montelukast 10 mg tablet TAKE 1 TABLET BY MOUTH EVERY DAY active prednisone 20 mg tablet TAKE 3 TABS BY MOUTH FOR 3 DAYS THEN 2X3,1X3,0.5X4. BETTER IN THE AM W/FOOD active prednisone 5 mg tablet TAKE 1 TABLET BY MOUTH EVERY DAY active triamcinolone acetonide 0.1 % topical cream APPLY TOPICALLY TWO TIMES PER DAY FOR 15 DAYS active Problems Problem Status Onset Date Problem Type Date of Resoluti on Source Osteoarthritis of right glenohumeral joint active 2023-01-04 ProblemAct [facility] Pain in right hip joint active 2023-05-07 ProblemAct [facility] History of total replacement of left hip joint active 2024-01-21 ProblemAct [facility] Pain in pelvis active 2023-08-20 ProblemAct [facility] Abrasion of skin of right knee active 2023-11-25 ProblemAct [facility] Encounters Encounter Type Encounter Reason Primary Diagnosis Location Date Ambulatory [facility] [place] 06/23/2024 Ambulatory [facility] [place] 06/23/2024 Ambulatory [facility] [place] 05/30/2024 Ambulatory [facility] [place] [facility] 02/25/2024 Ambulatory [facility] [place] [facility] 02/25/2024 Ambulatory [facility] [place] 12/11/2023 Ambulatory [facility] [place] 11/25/2023 Ambulatory [facility] [place] [facility] 05/05/2023 Ambulatory [facility] [place] [facility] 11/24/2022
== END 2025-05-25 15:34 | disposition home or self-care (01) ==
LOC: HO.HOS 15:05
PROVIDERS: PCP Nurse Practitioner Primary Care; Visit Provider Orthopaedic Surgery
DX: M25.811 Other specified joint disorders, right shoulder (principal)
CPT/HCPCS: 20610; 99213

== ENCOUNTER → 2025-05-25 15:04 | Outpatient (BNVA) | payer MEDICARE, SELFPAY | PROVIDERS: PCP Nurse Practitioner Primary Care; Visit Provider Orthopaedic Surgery | DX: M25.811 Other specified joint disorders, right shoulder (principal) | CPT/HCPCS: 20610; 99212; J1010; J2003 ==